=== PATIENT | female | born 1940 | race Caucasian/White ===

== ENCOUNTER → 2016-06-11 | Outpatient (CLI) | payer OTHER | LOC: BHFA 13:00 | PROVIDERS: ATTEND Internal Medicine Cardiovascular Disease | DX: I50.32 Chronic diastolic (congestive) heart failure (principal); R06.02 Shortness of breath; I48.91 Unspecified atrial fibrillation; I63.9 Cerebral infarction, unspecified; R53.83 Other fatigue ==

== ENCOUNTER 2016-10-18 01:14 | Emergency (ER) | payer OTHER ==
[2016-10-18 01:24] VITALS: RESP 18
[2016-10-18] MEDS ORDERED: ONDANSETRON 4 MG/2 ML VIAL IVP ONE (01:27)
[2016-10-18] MEDS ORDERED: NS 1,000 ML IV ONE (01:27)
--- NOTE | 2016-10-18 01:27 | EDPHY ---
H & P Stated Complaint: VOMITING UP POSS. BLOOD TODAY, TAKES COUMADIN HPI/ROS: HPI CHIEF COMPLAINT: Nausea, vomiting, lower abdominal pain, hematemesis HISTORY OF PRESENT ILLNESS: This patient very pleasant 76-year-old female, significant past medical history for AFib on Coumadin, MCA stroke with left- sided residual deficit, who presents emergency room with nausea, abdominal pain , vomiting and what they thought was dark clotted blood in her vomit. Patient tell me that over the past month there has been 3 episodes of vomiting. There were 2 episodes that were associated with right after eating a meal bolus. They did not identify any blood on nose 2 episodes she states she vomited 1 time on the and 1 time on the . She was seen by her primary care doctor. They scheduled her an ultrasound of her right upper quadrant. Tonight she had multiple episodes of vomiting they noticed on 1 of the episodes that there was dark clotted blood present they describe it is very dark black blueberries. She denies chest pain or shortness of breath. She was seen by her primary care doctor thought that it may be esophagitis or esophageal spasms. She denies dark black tarry stools. She is on Coumadin. Past Medical History: AFib, on Coumadin, MCA infarct left-sided residual deficit, generalized weakness, UTI Past Surgical History: No recent surgical history Social History: Denies daily use of drugs alcohol tobacco products Family History: Noncontributory ROS REVIEW OF SYSTEMS: A comprehensive 10 point review of systems is otherwise negative aside from elements mentioned in the history of present illness. Exam Constitutional appears well nontoxic, triage nursing summary reviewed, vital signs reviewed, awake/alert. Eyes normal conjunctivae and sclera, EOMI, PERRLA. HENT normal inspection, atraumatic, moist mucus membranes, no epistaxis, neck supple/ no meningismus, no raccoon eyes. Respiratory clear to auscultation bilaterally, normal breath sounds, no respiratory distress, no wheezing. Cardiovascular rate normal, regular rhythm, no murmur, no edema, distal pulses normal. Gastrointestinal soft, mild tender palpation lower abdomen, no rebound, no guarding, normal bowel sounds, no distension, no pulsatile mass. Genitourinary no CVA tenderness. Musculoskeletal no midline vertebral tenderness, full range of motion, no calf swelling, no tenderness of extremities, no meningismus, good pulses, neurovascularly intact. Skin pink, warm, & dry, no rash, skin atraumatic. Neurologic awake, alert and oriented x 3, AAOx3, moves all 4 extremities equally, motor intact, sensory intact, CN II-XII intact, normal cerebellar, normal vision, normal speech. Psychiatric normal mood/affect. Heme/Lymph/Immune no lymphadenopathy. Differential Diagnosis: Includes but is not limited to in a particular order upper GI bleed on Coumadin, esophagitis, peptic ulcer disease, gastritis, esophageal varices, colitis, diverticulitis, UTI Medical Decision Making: Plan for this patient IV establishment, type and screen, check Coumadin level, abdominal blood work, CT abdomen pelvis with IV contrast due to lower abdominal pain and vomiting. Check urinalysis. Re-evaluation: EKG interpretation by me on record in [employer] system. Impression time of EKG 1:51 a.m. AFib rate of 90. Q-waves present V1 V2 V3 similar previous EKG. There is T-wave flattening in V4 V5 V6 which is new. CT scan of the abdomen pelvis with IV contrast The results of the study are shows no acute inflammatory process seen there is a new 1 mm left UPJ stone, but otherwise no acute inflammatory process seen on CT scan.. The study was read by Dr. Garces I viewed the images myself on the PACS system. 0342AM: Re-examination at this time patient is resting comfortably or abdomen is soft. She has no complaints. I did perform a rectal exam: Starr RN at bedside. Brown stool no black stool. Guaiac card for Hemoccult blood is sent. 0439: Patient has been resting comfortably abdomen is soft nontender. Blood work has been reviewed is reassuring, Coumadin is appropriate level. She has not had any vomiting here. Rectal exam shows brown stool no blood. I did give the patient option to be admitted for observation however her after great discussion with myself feel that she can go home unlikely she is having acute GI bleed given H&H are stable, no vomiting blood here, brown stool guaiac negative. She does understand return precautions return emergency room she develops worsening abdominal pain, fever, vomiting of blood black tarry stools or bright red blood per rectum return immediately. I do recommend that she follows up with Gastroenterology on outpatient basis. Will place her on Zantac for 2 weeks. Zofran as needed for nausea she understands return emergency room there is any worsening symptoms questions or concerns. They are comfortable this plan. Additionally the and patient think that maybe the dark black spots that may have been blood in her vomit this evening my have been retain blueberries from dry cereal 24 hours ago. Source: Patient - Personal History Current Tetanus/Diphtheria Vaccine: Yes Current Tetanus Diphtheria and Acellular Pertussis (TDAP): Yes - Medical/Surgical History Hx Asthma: No Hx Chronic Respiratory Disease: No Hx Diabetes: No Hx Cardiac Disease: Yes Hx Renal Disease: No Hx Cirrhosis: No Hx Alcoholism: No Hx HIV/AIDS: No Hx Splenectomy or Spleen Trauma: No Other PMH: Afib, CVA - Left side deficits normally 2000, TIA 2014, hypothyroid, high lipids, broken left arm. - Social History Smoking Status: Never smoked Constitutional: Initial Vital Signs Temperature (C) 36.7 C 10/18/16 01:21 Heart Rate 93 10/18/16 01:21 Respiratory Rate 18 10/18/16 01:21 Blood Pressure 128/74 H 10/18/16 01:21 O2 Sat (%) 100 10/18/16 01:21 O2 Delivery Mode Room Air Allergies/Adverse Reactions: baclofen Allergy (Verified 10/18/16 01:24) Home Medications: Medication Instructions Recorded Atorvastatin Calcium [Lipitor 10 10 mg PO Q2D@1800 08/18/15 mg (*)] Cholecalciferol Vit D3 [Vitamin D3 6,000 units PO HS 08/18/15 (*)] Herbals/Supplements -Info Only 1 ea PO DAILY 08/18/15 Metoprolol Succinate 50 mg PO DAILY 08/18/15 Multivitamins [Multivitamin (*)] 1 each PO DAILY 08/18/15 [place]-3 Fatty Acids [Fish Oil 1000 1,000 mg PO DAILY@1800 08/18/15 mg (*)] Levothyroxine [Synthroid 100 mcg 100 mcg PO DAILY@17 04/11/16 (*)] Losartan Potassium [Cozaar 50 mg 100 mg PO DAILY 04/11/16 (*)] Omeprazole [Prilosec 20 mg] 40 mg PO DAILY 04/11/16 Vitamin K + Mk-7 90mcg 1 each PO DAILY@16 04/11/16 Warfarin Sodium [Coumadin 2MG (*)] 2 mg PO SUTUWEFRSA 04/11/16 Warfarin Sodium [Coumadin 3MG (*)] 3 mg PO MOTH 04/11/16 Acetaminophen [Tylenol 325mg (*)] 650 mg PO Q4HRS PRN #0 tab 04/14/16 Ondansetron HCl [Zofran] 4 mg PO Q4-6PRN PRN #10 tablet 10/18/16 Ranitidine HCl [Zantac] 150 mg PO DAILY #30 tablet 10/18/16 Medical Decision Making - Data Points Laboratory Results: Laboratory Results 10/18/16 02:00 10/18/16 02:00 10/18/16 10/18/16 10/18/16 03:45 02:00 02:00 WBC RBC Hgb Hct MCV MCH MCHC RDW Plt Count MPV Neut % (Auto) Lymph % (Auto) [place] % (Auto) Eos % (Auto) Baso % (Auto) Nucleat RBC Rel Count Absolute Neuts (auto) Absolute Lymphs (auto) Absolute Monos (auto) Absolute Eos (auto) Absolute Basos (auto) Absolute Nucleated RBC Immature Gran % Immature Gran # PT INR APTT VBG Lactic Acid Sodium 141 mEq/L mEq/L (134-144) Potassium 4.1 mEq/L mEq/L (3.5-5.2) Chloride 106 mEq/L mEq/L (97-110) Carbon Dioxide 26 mEq/l mEq/l (22-31) Anion Gap 9 mEq/L mEq/L (8-16) BUN 20 mg/dL mg/dL (7-23) Creatinine 0.9 mg/dL mg/dL (0.6-1.0) Estimated GFR > 60 Glucose 112 mg/dL H mg/dL (70-100) Calcium 9.7 mg/dL mg/dL (8.5-10.4) Total Bilirubin 0.7 mg/dL mg/dL (0.1-1.4) Conjugated Bilirubin 0.4 mg/dL mg/dL (0.0-0.5) Unconjugated Bilirubin 0.3 mg/dL mg/dL (0.0-1.1) AST 33 IU/L IU/L (14-46) ALT 49 IU/L IU/L (9-52) Alkaline Phosphatase 80 IU/L IU/L (38-126) Troponin I < 0.012 ng/mL ng/mL (0-0.034) Total Protein 7.1 g/dL g/dL (6.3-8.2) Albumin 4.0 g/dL g/dL (3.5-5.0) Lipase 213.0 IU/L IU/L (23-300) Stool Occult Bld Scrn NEGATIVE (NEGATIVE) Patient ABO/Rh O POSITIVE Antibody Screen NEGATIVE 10/18/16 10/18/16 10/18/16 02:00 02:00 02:00 WBC 8.17 10^3/uL 10^3/uL (3.80-9.50) RBC 4.54 10^6/uL 10^6/uL (4.18-5.33) Hgb 14.3 g/dL g/dL (12.6-16.3) Hct 42.6 % % (38.0-47.0) MCV 93.8 fL fL (81.5-99.8) MCH 31.5 pg pg (27.9-34.1) MCHC 33.6 g/dL g/dL (32.4-36.7) RDW 14.3 % % (11.5-15.2) Plt Count 196 10^3/uL 10^3/uL (150-400) MPV 11.1 fL fL (8.7-11.7) Neut % (Auto) 69.5 % % (39.3-74.2) Lymph % (Auto) 16.9 % % (15.0-45.0) [place] % (Auto) 11.5 % % (4.5-13.0) Eos % (Auto) 0.7 % % (0.6-7.6) Baso % (Auto) 0.5 % % (0.3-1.7) Nucleat RBC Rel Count 0.0 % % (0.0-0.2) Absolute Neuts (auto) 5.68 10^3/uL 10^3/uL (1.70-6.50) Absolute Lymphs (auto) 1.38 10^3/uL 10^3/uL (1.00-3.00) Absolute Monos (auto) 0.94 10^3/uL H 10^3/uL (0.30-0.80) Absolute Eos (auto) 0.06 10^3/uL 10^3/uL (0.03-0.40) Absolute Basos (auto) 0.04 10^3/uL 10^3/uL (0.02-0.10) Absolute Nucleated RBC 0.00 10^3/uL 10^3/uL (0-0.01) Immature Gran % 0.9 % % (0.0-1.1) Immature Gran # 0.07 10^3/uL 10^3/uL (0.00-0.10) PT 31.2 SEC H SEC (12.0-15.0) INR 2.96 H (0.83-1.16) APTT 38.8 SEC H SEC (23.0-38.0) VBG Lactic Acid 1.1 mmol/L mmol/L (0.7-2.1) Sodium Potassium Chloride Carbon Dioxide Anion Gap BUN Creatinine Estimated GFR Glucose Calcium Total Bilirubin Conjugated Bilirubin Unconjugated Bilirubin AST ALT Alkaline Phosphatase Troponin I Total Protein Albumin Lipase Stool Occult Bld Scrn Patient ABO/Rh Antibody Screen Medications Given: Discontinued Medications Sodium Chloride (Ns) 1,000 mls @ 0 mls/hr IV ONCE ONE PRN Reason: Wide Open Stop: 10/18/16 01:28 Last Admin: 10/18/16 02:00 Dose: 1,000 mls Ondansetron HCl (Zofran) 4 mg IVP EDNOW ONE Stop: 10/18/16 01:28 Last Admin: 10/18/16 03:57 Dose: Not Given Departure - Departure Disposition: Home, Routine, Self-Care Clinical Impression: Vomiting Qualifiers: Vomiting type: unspecified Vomiting Intractability: non-intractable Nausea presence: with nausea Qualified Code(s): R11.2 - Nausea with vomiting, unspecified Condition: Good Instructions: Acute Nausea and Vomiting (ED) Additional Instructions: 1. Return immediately to the emergency room if he develops any further vomiting or blood in her vomit. 2. I do recommend he take Zantac for 2 weeks. 3. Return emergency room if you have further questions or concerns. 4. Do recommend he also follow up with Gastroenterology and get her ultrasound this Saturday. Referrals: Aamir Bush MD [Primary Care Provider] - As per Instructions Gary Bhatti MD [Medical Doctor] - As per Instructions Prescriptions: Ondansetron HCl [Zofran] 4 mg PO Q4-6PRN PRN #10 tablet PRN Reason: Nausea/Vomiting, Use 1st Ranitidine HCl [Zantac] 150 mg PO DAILY #30 tablet
--- NOTE | 2016-10-18 01:53 | CPEKG ---
Heart Rate: 90 RR Interval: 667 QRSD Interval: 76 QT Interval: 380 QTC Interval: 465 QRS [place]: -19 T Wave [place]: -11 EKG Severity - ABNORMAL ECG - EKG Impression: ATRIAL FIBRILLATION, V-RATE 67-111 EKG Impression: BORDERLINE LEFT AXIS DEVIATION EKG Impression: BORDERLINE T ABNORMALITIES, INFERIOR LEADS Electronically Signed By: Janes Poole 18-Oct-2016 07:31:02
[2016-10-18] MEDS ORDERED: IOPAMIDOL (ISOVUE-300) 100 ML BTL ONE (02:02)
[2016-10-18 02:15] LABS: % IMMATURE GRANULYOCYTES 0.9 % (0.0-1.1); ABSOLUTE IMMATURE GRANULOCYTES 0.07 10^3/uL (0.00-0.10); ADD DIFF? NO; ADD MORPH? NO; ATYPICAL LYMPHOCYTE FLAG 0 (0-99); FRAGMENT RBC FLAG 0 (0-99); HEMATOCRIT 42.6 % (38.0-47.0); HEMOGLOBIN 14.3 g/dL (12.6-16.3); LEFT SHIFT FLG 0 (0-99); LIPEMIA HEMOLYSIS FLAG 80 (0-99); MEAN CELL HEMOGLOBIN 31.5 pg (27.9-34.1); MEAN CELL HEMOGLOBIN CONCENTR. 33.6 g/dL (32.4-36.7); MEAN CELL VOLUME 93.8 fL (81.5-99.8); MEAN PLATELET VOLUME 11.1 fL (8.7-11.7); PLATELET CLUMPS FLAG 0 (0-99); PLATELET COUNT 196 10^3/uL (150-400); RED BLOOD CELL COUNT 4.54 10^6/uL (4.18-5.33); RED CELL DISTRIBUTION WIDTH 14.3 % (11.5-15.2)
[2016-10-18 02:16] LABS: ADD SCAN? NO
[2016-10-18 02:27] LABS: APTT 38.8 SEC (23.0-38.0); INR 2.96 (0.83-1.16); PROTIME(PATIENT) 31.2 SEC (12.0-15.0)
[2016-10-18 02:42] LABS: ALANINE AMINOTRANSFERASE 49 IU/L (9-52); ALKALINE PHOSPHATASE 80 IU/L (38-126); ANION GAP 9 mEq/L (8-16); ASPARTATE AMINOTRANSFERASE 33 IU/L (14-46); BILIRUBIN,TOTAL 0.7 mg/dL (0.1-1.4); BILIRUBIN-CONJUGATED 0.4 mg/dL (0.0-0.5); BILIRUBIN-UNCONJUGATED 0.3 mg/dL (0.0-1.1); CALCIUM 9.7 mg/dL (8.5-10.4); CARBON DIOXIDE 26 mEq/l (22-31); CHLORIDE 106 mEq/L (97-110); CREATININE 0.9 mg/dL (0.6-1.0); GLOMERULAR FILTRATION RATE > 60; GLUCOSE 112 mg/dL (70-100); POTASSIUM 4.1 mEq/L (3.5-5.2); SODIUM 141 mEq/L (134-144); TOTAL PROTEIN 7.1 g/dL (6.3-8.2)
[2016-10-18 02:53] LABS: TROPONIN I < 0.012 ng/mL (0-0.034)
[2016-10-18 04:24] VITALS: BP 130/67; PULSE 85; TEMP 97.9
[2016-10-18 04:37] VITALS: O2SAT 90
== END 2016-10-18 04:53 | disposition home or self-care (01) ==
DX: R11.2 Nausea with vomiting, unspecified (principal); Z79.01 Long term (current) use of anticoagulants; Z86.73 Personal history of transient ischemic attack (TIA), and cerebral infarction without residual deficits
CPT/HCPCS: 74177; 93005; 96360; 99285; Q9967

== ENCOUNTER → 2016-10-19 | Outpatient (CLI) | payer OTHER | LOC: CIMAGING 10:09 | PROVIDERS: ATTEND Physician Assistant | DX: R10.11 Right upper quadrant pain (principal); R11.11 Vomiting without nausea; R74.8 Abnormal levels of other serum enzymes; N28.1 Cyst of kidney, acquired | CPT/HCPCS: 76700-PO ==

== ENCOUNTER → 2016-12-25 | Outpatient (CLI) | payer OTHER | LOC: FIMAGING 11:15 | PROVIDERS: ATTEND Internal Medicine | DX: Z12.31 Encounter for screening mammogram for malignant neoplasm of breast (principal) | CPT/HCPCS: G0202 ==

== ENCOUNTER → 2017-02-07 | Outpatient (CLI) | payer OTHER | LOC: FIMAGING 09:59 | PROVIDERS: ATTEND Internal Medicine | DX: Z13.820 Encounter for screening for osteoporosis (principal); M81.0 Age-related osteoporosis without current pathological fracture; Z78.0 Asymptomatic menopausal state; Z87.81 Personal history of (healed) traumatic fracture ==

== ENCOUNTER 2018-08-26 14:39 | Inpatient (IN) | payer OTHER ==
[2018-08-26] MEDS ORDERED: ACETAMINOPHEN 325 MG TAB PO PRN (15:36)
[2018-08-26] MEDS ORDERED: ONDANSETRON DISINTEGRATING 4 MG TAB PO PRN (15:36)
[2018-08-26] MEDS ORDERED: ONDANSETRON 4 MG/2 ML VIAL IVP PRN (15:36)
--- NOTE | 2018-08-26 17:06 | GHP ---
[f rep st] HISTORY AND PHYSICAL DATE OF ADMISSION: 08/26/2018 ADMITTING DIAGNOSES: Nausea and weakness. PAST MEDICAL HISTORY: Positive for osteoporosis, congestive heart failure, stroke in 2000 with resid ual left-sided weakness, chronic atrial fibrillation, on anticoagulation, hypothyroidism. PAST SURGICAL HISTORY: Includes tonsillectomy in 1954, hysterectomy in 1991, and cataract surgeries in 2007 and 2016. FAMILY HISTORY: Daughter is alive at 46 years old. Father is ; positive for malignant melan yamil. Mother ; liver and uterine cancer. Paternal grandfather from cancer. Paterna l grandmother from cancer. Maternal grandfather from heart disease. Maternal gran dmother from cancer. ALLERGIES: No known drug allergies. HISTORY OF PRESENTING ILLNESS: The patient is a 78-year-old female who was admitted as a direct admi ssion from the office. She has a past medical history, which is complicated by a stroke in 2000 and atrial fibrillation for which she takes chronic anticoagulation. She was admitted to [facility] on August 19, following a fall over the weekend related to increased fatigue and weakness. She was found to be positive for a urinary tract infection and was started on Keflex. She also was positive for flu and was given Tamiflu while in the hospital. The patient was discharged home on Aug, with her , who is her primary press machine operator. She was seen in the office yesterday for a f ollowup from discharge and reported that she was making some progress in her recovery, though was sti ll weak and still had residual respiratory symptoms. She then followed up again today in the office complaining of increased nausea and weakness overnight, such that she was unable to even eat or drink since she was in the office yesterday due to the nausea. She also reported that she has been having loose stools, though after taking a dose of Imodium this morning, she has not had any subsequent epi sodes of diarrhea. She denies any fevers or chills. Also notably, the patient and her repor t that while at the hospital last week, she was requiring nocturnal oxygen as she was desaturating to the mid 80s on room air. Last night, she did a SNAP sleep study at home, which did reveal significa nt hypoxia overnight. The patient will be admitted for rehydration and management of her nausea as w e work up the cause of her ongoing weakness and current symptomatology. REVIEW OF SYSTEMS: GENERAL: Denies fever, chills. Endorses fatigue and decreased appetite. ENT: Denies ear pain, sore throat, nasal congestion, or sinus pressure and pain. RESPIRATORY: Denies heather rtness of breath, wheezing. Does endorse a generally nonproductive cough without sputum production. CARDIOVASCULAR: Denies chest pain, palpitations, dizziness, lightheadedness. GI: Denies abdominal pain and constipation. Does endorse persistent nausea and intermittent episodes of diarrhea. Denie s any blood in her stool. MUSCULOSKELETAL: Denies joint stiffness, joint pain, or swollen joints, b ut does endorse low back pain related to fall from last weekend. SKIN: Denies itching, rash, hives. NEUROLOGIC: Has baseline left-sided weakness. Denies any acute weakness or change in strength or s ensation. PSYCHIATRIC: Denies any anxiety or mood changes. PHYSICAL EXAMINATION: GENERAL: Alert, appropriate, in no acute distress. HEAD: Normocephalic, atr aumatic. EYES: EOMI, PEERL. SKIN: Warm and dry. HEART: Irregularly irregular, rate-controlled. No murmurs, rubs, or gallops. LUNGS: Bilateral lower lobes with fine crackling. No wheezing. EXT REMITIES: No peripheral edema noted. NEUROLOGIC: Alert, oriented, cooperative with exam. ASSESSMENT AND PLAN: 1. Nausea. Patient has been experiencing persistent nausea for the past couple of days. She has be en unable to eat or drink anything since yesterday due to the nausea. She has not had any episodes o f emesis. We will start some rehydration with normal saline through the evening and give her as-need ed Zofran while we work this up. Unclear etiology of the nausea at this time. 2. Respiratory infection. She was recently diagnosed with the flu and was given a course of Tamiflu , so I suspect that this is lingering from this recent upper respiratory infection, though I would li ke to get a chest x-ray to rule out a developing pneumonia, given her current symptomatology. 3. Fatigue, likely related to any lingering infection. She was previously being treated for urinary tract infection as well. We will plan to start physical therapy and occupational therapy to help wi th strength and reconditioning as we continue to investigate any ongoing cause of her fatigue and wea kness. 4. Urinary tract infection. We will continue the Keflex that she was started on for urinary tract i nfection. 5. Disposition. Will admit for observation pending workup. /[id number]/MODL
[2018-08-26 17:26] LABS: PLATELET COUNT 326 10^3/uL (150-400)
[2018-08-26] MEDS: NS 1,000 ML IV SCH (18:17)
[2018-08-26] MEDS: WARFARIN SODIUM 3 MG TAB PO SCH (18:25)
[2018-08-26] MEDS ORDERED: MELATONIN 3 MG TAB PO PRN (23:53)
[2018-08-27 05:20] LABS: INR 3.44 (0.83-1.16); PROTIME(PATIENT) 32.9 SEC (12.0-15.0)
[2018-08-27] MEDS: NS 1,000 ML IV SCH ×2 (07:26)
[2018-08-27] MEDS ORDERED: FUROSEMIDE 20 MG/2 ML VIAL IVP ONE ×2 (09:01→14:00)
[2018-08-27] MEDS ORDERED: PROMETHAZINE HCL 25 MG/ML INJ IVP PRN (09:22)
[2018-08-27] MEDS ORDERED: Herbals/Supplements -Info Only PO SCH (09:30)
[2018-08-27] MEDS: CHOLECALCIFEROL VIT D3 1,000 UNITS TAB PO SCH (10:16)
[2018-08-27] MEDS: METOPROLOL SUCCINATE XR 50 MG TAB PO SCH (10:17)
[2018-08-27] MEDS: LOSARTAN POTASSIUM 50 MG TAB PO SCH (10:17)
[2018-08-27] MEDS: CEPHALEXIN 500 MG CAP PO SCH ×2 (10:17→20:07)
--- NOTE | 2018-08-27 10:45 | SOAPPROG ---
SOAP Progress Note Assessment/Plan: Assessment: 78 yo female admitted for nausea and weakness. Plan: Fatigue - BNP elevated which is likely contributing to weakness and possibly nausea if hepatic congestion as well. Will order echo today for further eval. Lasix 20mg today for diuresis. Nausea- as discussed above. PRN zofran and compazine for nausea. Weakness - PT/OT, will also repeat urine to make sure we are not missing a lingering UTI Nocturnal hypoxia- pt likely needs 2LO2 to maintain O2 sats above 90% at night. RN To titrate O2 based on requirements. Diarrhea- r/o cdiff Dispo- will stay this evening so will switch to inpt 08/27/18 10:00 08/27/18 10:46 Subjective: Christianne is resting in bed this morning. She tried to eat some omelet but feels nauseous. Still has a mild cough. One loose BM this morning. Objective: Vital Signs Temp Pulse Resp BP Pulse Ox 36.6 C 107 H 16 135/82 H 91 L 08/27/18 07:14 08/27/18 07:14 08/27/18 07:14 08/27/18 07:14 08/27/18 07:14 Laboratory Results 08/26/18 17:10 08/26/18 17:10 08/26/18 08/27/18 08/28/18 05:59 05:59 05:59 Intake Total 2340 Balance 2340 PT 32.9 SEC (12.0-15.0) H 08/27/18 04:41 INR 3.44 (0.83-1.16) H 08/27/18 04:41 Gen- alert, oriented, vitals stable Head- normocephalic, atraumatic CV- irregularly irregular rate and rhythm, rate controlled Resp- bibasilar crackling Abd- SNT nondistended, + BS Skin- warm and dry ICD10 Worksheet Patient Problems: Problems Problem Status Onset Dehydration Acute Nausea Acute Nausea vomiting and diarrhea Acute Weakness generalized Acute
[2018-08-27] MEDS: IPRATROPIUM/ALBUTEROL 3 ML DEYVIAL IH SCH ×3 (11:22→21:57)
--- NOTE | 2018-08-27 13:23 | ECHO ---
[email or web address] [address] Main: [phone] Echocardiography Examination Transthoracic Name: REKHA ANGELES MR#: [id number] Study Date: 08/27/2018 Study Time: 10:41 AM Date of : 1940 Age: 78 year(s) Height: 167.6 cm (66 in.) Weight: 68.04 kg (150 lb.) BSA: 1.77 m2 Gender: Female Examination: Echo Contrast: Image Quality: Adequate Rhythm: Heart Rate: BP: 135 mmHg/82 mmHg Indication: elevated BNP Procedure Staff Referring Physician: Biscuit Packer: Ketty Merritt [facility] Reading Physician: Martin Card MD Requesting Provider: Ordering Physician: Shyanne Harvey Indication: elevated BNP Measurements Chambers AV/MV Label Value Normal Value Label Value Normal Value LVOT Vmax 0.58 m/s (0.7m/s - 1.1m/s) AV PGmax 4 mmHg LVOTd 1.7 cm (1.8cm - 2cm) AV PGmean 3 mmHg LVOT VTI 11.4 cm (18cm - 22cm) AV Vmax 0.93 m/s LVDd, MM 3.7 cm (3.9cm - 5.3cm) LIZ (Vmax) 1.4 cm2 LVDs, MM 2.7 cm (2cm - 3.8cm) LIZ (VTI) 14.4 cm2 IVSd, MM 1.1 cm (0.6cm - 0.9cm) MV E Vmax 0.9 m/s LVPWd, MM 1.1 cm (0.6cm - 0.9cm) MV PHT 58 s LVEF, BP 57 % (55% - 70%) MVA PHT 0 cm2 RVDd, 2D 2.7 cm (1.9cm - 3.8cm) TV/PV LA Volume, BP 134 ml (22ml - 52ml) Label Value Normal Value LAESV index, BP 75.7 ml/m2 RA Pressure 5 mmHg RA Area 21.7 cm2 RVSP 46 mmHg Additional Vessels TR Pmax 41 mmHg Label Value Normal Value TV Vmax 3.2 m/s (0.3m/s - 0.7m/s) AoAsc 3 cm PV PGmax 1 mmHg AoRoot, 2D 2.8 cm (1.4cm - 2.6cm) IVC 1.7 cm (1.2cm - 2.3cm) Patient: REKHA ANGELES Study Date: 08/27/2018 Page 1 of 3 10:41 AM Conclusions Left Ventricle: EF range is estimated at 55 % - 60 %. Mitral Valve: Severe mitral regurgitation. There is mitral valve prolapse. Aortic Valve: Mild aortic regurgitation is present. Tricuspid Valve: Moderate to severe tricuspid regurgitation. Right Ventricular systolic pressure is measured at 46 mmHg. Findings Left Ventricle: Left ventricle is normal in size. Normal global systolic left ventricular function. The ejection fraction, measured by Simpsons method, is 57 %. EF range is estimated at 55 % - 60 %. Left ventricle wall thickness is normal. There are no regional wall motion abnormalities. Right Ventricle: Normal size right ventricle. Right ventricular systolic function is normal. Left Atrium: The left atrium is severely dilated. Right Atrium: The right atrium is moderately dilated. Mitral Valve: Severe mitral regurgitation. No mitral valve stenosis. There is mitral valve prolapse. Aortic Valve: Aortic leaflets are structurally normal. Mild aortic regurgitation is present. There is no aortic stenosis. There is aortic sclerosis present. Tricuspid Valve: Tricuspid valve leaflets are structurally normal. Moderate to severe tricuspid regurgitation. No tricuspid valve stenosis. Right Ventricular systolic pressure is measured at 46 mmHg. Pulmonary artery pressure is mildly to moderately increased. Pulmonic Valve: Pulmonic leaflets are structurally normal. Mild pulmonic valve regurgitation is present. Aorta: The aortic root size in 2D measures 2.8 cm. The ascending aorta measures 3.0 cm. Aorta Measurements AoRoot, 2D is 2.8 cm. IVC: The inferior vena cava is normal in size. Pericardium: No pericardial effusion. Exam Details Procedure Ordered: Echo Procedure Status: Routine study Image Quality: Adequate Facility Location: Cardiac Echo 1 Patient: REKHA ANGELES Study Date: 08/27/2018 Page 2 of 3 10:41 AM (No Signature Object) Patient: REKHA ANGELES Study Date: 08/27/2018 Page 3 of 3 10:41 AM [id number]
--- NOTE | 2018-08-27 15:02 | ASMTCMCOM ---
CM Note CM Note Notes: Reviewed chart, pt admitted to hospital directly from MD's office for nausea/weaknes. PT/OT to eval CM w/f. DC Plan: TBD Date Signed: 08/27/2018 03:01 PM Electronically Signed By:Sonali Moise RN
--- NOTE | 2018-08-27 15:22 | PDMN ---
Medical Necessity Medical necessity: Change to IP, as of 08/27/18, per CLERK GENERAL & [facility] MG-[facility] Cardiology; los >2 mn for ongoing management of suspected valvular heart disease w/fatigue, elevated BNP, nausea & diarrhea; requiring further workup/monitoring, Cardiology consult w/possible surgical intervention & therapies; comorbid advanced age, CHF, AFIB on AC, stroke w/residual weakness
[2018-08-27] MEDS ORDERED: WARFARIN SODIUM 2 MG TAB PO SCH (16:00)
[2018-08-27] MEDS: [UNRECOGNIZED DRUG - OTHER] PO SCH (16:45)
--- NOTE | 2018-08-27 17:16 | GCON ---
[f rep st] CONSULTATION CARDIOLOGY CONSULTATION SUPERVISING SPRAY II PAINTER: Rodríguez Izquierdo MD. INDICATION FOR CARDIOLOGY CONSULTATION: Heart failure with noted worsening mitral regurgitation. REQUESTING PROVIDER FOR CONSULTATION: Shyanne Harris NP. HISTORY OF PRESENT ILLNESS: The patient is a 78-year-old female who had priorly been seen by our practice by Dr. Baez. She has significant past history that includes permanent atrial fibrillation first discovered in 1998, centralized sleep apnea, history of CVA with left-sided deficit in 2000, hypertension, moderate MR, chronic diastolic heart failure, and hypothyroidism. The patient and informing the patient had been feeling sick and fatigued for approximately a week before the beginning of August. She was recently hospitalized at [facility] for fatigue and shortness of breath. She was found to have both urinary tract infection, which was treated with Keflex and influenza A which was treated with Tamiflu. She appeared to be recovering, she was discharged home. She was seen at Dr. Parmar's office on the as a hospital followup, reporting feeling a little bit better, but returned office visit on the , reporting increased shortness of breath, and ongoing fatigue. She was admitted directly to the hospital from their office. Upon arrival, a chest x-ray was done which noted showing no consolidation or opacity suggesting of pneumonia, peribronchial thickening which can be seen with reactive small airway disease, but no acute cardiopulmonary process. Laboratories were also drawn on admission, which noted a significantly elevated BNP of 5190. Due to this, echocardiogram was done, this morning, which noted LVEF of 55% to 60% with no wall motion abnormalities, RV function was noted to be normal. She was noted to have severely dilated LA, moderately dilated RA and noted to have severe MR. She was also noted to have moderate to severe TR with an RVSP of 46 mmHg. In comparison to previous echo done in 2016, her MR and TR had significantly worsen. She was given 2 doses of IV Lasix today, in which she has had significant output. She does inform me that she has been feeling better since being started on IV diuresis. She reports she has had no history of chest pressure or pain. She denies any palpitations, but she is known to be in permanent atrial fibrillation. She does report some mild orthopnea, denies any PND, edema, near-syncope, or syncopal events. Reporting no new symptoms suggesting recurrent TIA or CVA. PAST MEDICAL HISTORY: Includes: 1. Permanent atrial fibrillation, first diagnosed in 1998. 2. She does state that she was on warfarin for a small amount of time, when first diagnosed, but stopped it. Unfortunately she did have a CVA in 2000 which left left-sided arm deficit 3. hypertension 4. mitral regurgitation 5. chronic diastolic heart failure 6. osteoporosis 7. hypothyroidism 8. hyperlipidemia. PAST SURGICAL HISTORY: Includes tonsillectomy hysterectomy and cataract surgery. FAMILY HISTORY: Positive for cancer, and reporting maternal grandfather was from heart disease. SOCIAL HISTORY: She is . She has 1 daughter who is an Infectious Disease doctor for the [employer]. She denies of any history of smoking, denies any alcohol use. Denies any illicit drug use. She lives in [place]. ALLERGIES: Baclofen. HOME MEDICATIONS: Include warfarin 3 mg p.o. every Saturday and Saturday. Warfarin 2 mg p.o. every Saturday, Saturday, Saturday, and Saturday. Vitamin D 36,000 units p.o. daily. Vitamin K plus ML7 90 mcg p.o. daily. Metoprolol succinate 500 mg p.o. daily. Losartan 50 mg p.o. daily. Synthroid 100 mcg p.o. daily. REVIEW OF SYSTEMS: A 10-point review of systems done on patient all negative except as mentioned above. PHYSICAL EXAMINATION: GENERAL APPEARANCE: Thin, frail looking, elderly female. She is alert and oriented to person, place, time, and situation. Appears to be in no acute distress at the time of my examination. VITAL SIGNS: Current vital signs are blood pressure of 121/67, heart rate of 84 , atrial fibrillation on the monitor, respirations are 18, saturating 94% on 2 L nasal cannula, temperature 36.8 degrees Celsius. HEENT: Head is normocephalic. Lips and tongue are pink and moist with no signs of cyanosis. Conjunctivae pink. NECK: Trachea is midline, +2 carotid pulses bilateral, no auscultated bruits, jugular vein elevation of 5-6 cm above sternal notch at a 45 -degree angle. RESPIRATORY: Rales noted in bases bilateral, mild rhonchi upper lobes which clears with cough. No wheezing. No accessory muscle use, no intercostal muscle retraction noted. CARDIAC: Regular rate, irregular rhythm, S1, S2, 2/6 systolic murmur noted along the left sternal border. ABDOMEN: Soft , nontender, bowel sounds x4 quadrants. No organomegaly. No palpable masses. SKIN: [place], warm, dry, no cyanosis, no clubbing, no peripheral edema. VASCULAR : +2 carotids bilateral, +2 radials bilateral, +1 dorsal pedal and posterior tibial pulses bilateral. LABORATORY STUDIES: Laboratory studies drawn on admission showed WBC of 6.22, hemoglobin 12.2, hematocrit 35.3, platelet count 326. Sodium 135, potassium 4.0 , chloride 102, CO2 21, BUN 12, creatinine 0.6, glucose 73, calcium 8.2, total bilirubin 1.0, AST 44, ALT 27, alkaline phosphate 41. ProBNP 5190. Total protein 6.0, albumin 3.2. Today patient had an INR that was 3.44. UA was negative. STUDIES: Chest x-ray as mentioned above. Echocardiogram as mentioned above. ASSESSMENT AND PLAN: 1. Acute respiratory failure: Patient was noted at her primary care physician' s office to have SpO2 of 80%, she is currently on oxygen therapy, she has also been started on nebulizers, which has improved her saturation. Respiratory failure is probably multifactorial that includes recent respiratory infection from influenza and worsening of her diastolic heart failure. 2. Diastolic heart failure, acute on chronic: patient with known history of diastolic heart failure in the past with moderate mitral regurgitation, noticed significantly worst mitral regurgitation now. She does have elevated jugular venous distention with no significant peripheral vascular disease. She does have rales in the bases, she has made mild improvement with IV diuretics of Lasix. Echocardiogram noted normal LV systolic function, with no wall motion abnormalities. Normal EF. Severe MR. At this time, I would like to continue her on intravenous Lasix at 20 mg IV twice daily. Will order for her to get a potassium and magnesium level this afternoon for evaluation due to recent, and we will continue monitoring her electrolyte and renal function closely during her diuresis. Monitor her input and output, and daily weights. 3. Severe mitral regurgitation: Today's echocardiogram showing worsening mitral regurgitation, in comparison to previous echocardiogram in 2016. Potentially her diastolic heart failure and fluid overload could also cause her MR to be worsened, but reviewing echocardiograms with Dr. Izquierdo, due to her significantly dilated left atrium, her mitral regurgitation could also be underestimated. Will continue to diurese her and get her closer to euvolemic state. Once there, she will undergo transesophageal echocardiogram, for further evaluation of her valvular disease. We may also consider right and left heart catheterization if necessary. 4. Permanent atrial fibrillation: Patient noted to be in permanent atrial fibrillation, she is currently rate controlled on current dose of metoprolol succinate, will continue her on home dosage. She is supratherapeutic on warfarin, this is being adjusted by pharmacy, if we decide to do a heart catheterization during this hospitalization, we will maybe potentially discontinue warfarin and place her on Lovenox therapy due to her significant CHADS VASc score (5). 5. Hypertension: Her blood pressure appears to be well controlled on current medication regimen, due to diuresis, if we do notice significant lower blood pressures, if need be we will discontinue her losartan to allow for us to further diurese. 6. Hypothyroidism: She has been resumed on home Synthroid dosage. 7. History of cerebrovascular accident: She has left-sided paralysis. She reports no worsening in symptoms. Thank you for this consultation. We will be glad to follow along with you. /[id number]/MODL MTDD
[2018-08-27] MEDS: LEVOTHYROXINE 100 MCG TAB PO SCH (18:09)
[2018-08-27] MEDS ORDERED: MAGNESIUM SULF 2 GM/WATER 50 ML IV ONE (19:30)
[2018-08-27] MEDS ORDERED: POTASSIUM CL 20 MEQ TAB PO ONE (19:30)
[2018-08-28 04:49] LABS: INR 3.36 (0.83-1.16); PROTIME(PATIENT) 32.3 SEC (12.0-15.0)
[2018-08-28] MEDS: IPRATROPIUM/ALBUTEROL 3 ML DEYVIAL IH SCH ×4 (04:50→22:32)
[2018-08-28] MEDS: FUROSEMIDE 20 MG/2 ML VIAL IVP SCH ×2 (09:24→15:14)
[2018-08-28] MEDS: POTASSIUM CL 20 MEQ TAB PO SCH ×2 (09:29→11:07)
[2018-08-28] MEDS: METOPROLOL SUCCINATE XR 50 MG TAB PO SCH (09:30)
[2018-08-28] MEDS: CHOLECALCIFEROL VIT D3 1,000 UNITS TAB PO SCH (09:30)
[2018-08-28] MEDS: LOSARTAN POTASSIUM 50 MG TAB PO SCH (09:30)
--- NOTE | 2018-08-28 12:31 | SOAPPROG ---
SOAP Progress Note Assessment/Plan: Assessment: 78 yo female admitted for sob after recent URI w/ nausea and recent diarrhea, found to have CHF w/ diastolic hf and severe MR, mod-severe TR, w/ h/o long standing a fib and h/o CVA w/ left sided residual weakness and contraction. -SOB - multifactorial w/ recent URI, fluid overload. Getting better, on oxygen, diuresing, feeling like less trouble now w/ breathing significantly compared to yesterda. Cont w/ diuresis, o2. -diastolic HF w/ severe MR and mod-severe TR - cardiology seeing pt, appreciate input, on lasix 20 po bid, responding well to this, mag/k ok. Will likely need NORBERTO and may be f/u with R and L heart cath. -a fib -chronic, cont warfarin but holding now to let it drift down w/ planned procedures above and INR was too high on admissions. -HTN - cont on bb, losartan, watch bp w/ diuresis, may dial down losartan -dvt proph - coumadin Plan: 08/28/18 12:26 Subjective: Doing better, no further nausea, has had no diarrhea/stool, breathing more comfortable Objective: Vital Signs Temp Pulse Resp BP Pulse Ox 36.4 C 97 20 117/64 95 08/28/18 11:43 08/28/18 11:43 08/28/18 11:43 08/28/18 11:43 08/28/18 11:43 Laboratory Results 08/26/18 17:10 08/28/18 03:38 08/27/18 08/28/18 08/29/18 05:59 05:59 05:59 Intake Total 2340 855 Output Total 2250 Balance 2340 -1395 PT 32.3 SEC (12.0-15.0) H 08/28/18 03:38 INR 3.36 (0.83-1.16) H 08/28/18 03:38 Gen: pleasant, alert, spouse at bedside Heent: eomi, wearing nasal cannula Neck: soft/supple Chest: coarse bs throughout, more in bases CV: irreg irreg Ext: trace edema ble Neur: alert and oriented - Pending Discharge Pending Discharge Within 24 Hours: No ICD10 Worksheet Patient Problems: Problems Problem Status Onset Weakness generalized Acute Nausea vomiting and diarrhea Acute Dehydration Acute Nausea Acute
--- NOTE | 2018-08-28 12:48 | PDCARPN ---
Cardiology Progress Note Chief Complaint: Patient reports fatigue short of breath. Assessment/Plan: Assessment: 78-year-old female with significant history of permanent atrial fibrillation, previous CVA with left-sided deficit, hypertension, mitral regurgitation, chronic diastolic heart failure. Admitted on 08/26/2018 for shortness of breath, fatigue, nausea recent diarrhea. Patient with recent upper respiratory infection, influenza A positive, an UTI, with recent hospitalization at [facility]. Admission patient noted to have significantly elevated BNP of 5190. Echocardiogram done 08/27/2018 showing normal LV systolic function with EF 57%, no wall motion abnormalities, normal RV size and function, LA severely dilated, RA moderately dilated, severe MR, moderate to severe TR, RVSP of 46 mm Hg. 08/28/2018: Patient reporting improvement in shortness of breath. States fatigue symptoms have also improved. Denies of any chest pressure or pain. Continues are cardiac monitoring showing atrial fibrillation , rate controlled. O>I. Patient is down 1.2 kilos from yesterday. Laboratories noting potassium 3.6, BUN 11, creatinine 0.7, magnesium 2.1. INR supratherapeutic at 3.36. JVD improved, no further rales in bases, in comparison to yesterday. Continues cardiac monitoring showing atrial fibrillation, rate control, occasional PVC, no malignant arrhythmias or pauses . Plan: 1. Acute respiratory failure: Multifactorial with recent upper respiratory function and diastolic heart failure, patient reporting improvement in symptoms. Continue pulmonary toilet, continue treating heart failure. 2. Acute on chronic diastolic heart failure: Patient has diuresed well with IV Lasix. Will continue on current regime. BUN creatinine within normal limits. Potassium supplement ordered for today. Continue watching electrolyte renal function. Daily weights. I&Os. 3. Valvular heart disease: Echo noting severe MR, and moderate to severe TR, in comparison to previous echocardiogram in 2016, this has significantly worsened. Potentially heart failure to is contributing to the regurgitation. Continue treat with diuretics as mentioned above. Will plan on NORBERTO tomorrow for further evaluation. If necessary, patient may need right and left heart catheterization. 4. Permanent atrial fibrillation: Well rate controlled on current dose of metoprolol, no change. Supratherapeutic INR. Warfarin on hold. 5. Hypertension: BP appears to be within normal limits at this time. No change to current dose of metoprolol for losartan for the time being. 08/28/18 12:45 Subjective: Patient states that her fatigue and shortness of breath has improved. She denies of any chest pressure or pain. Denies of any lightheadedness, near- syncope or syncopal events. Reviewed/Discussed With: other (Dr Izquierdo) Objective: Vital Signs (8 Hrs) Temp Pulse Resp BP Pulse Ox 08/28/18 11:43 36.4 C 97 20 117/64 95 08/28/18 11:15 98 19 98 08/28/18 09:30 93 130/96 H 08/28/18 07:39 36.4 C 93 21 H 130/96 H 94 08/28/18 04:50 78 14 98 Intake/Output (24 Hrs) 08/27/18 08/28/18 08/29/18 05:59 05:59 05:59 Intake Total 2340 855 Output Total 2250 Balance 2340 -1395 Intake: Oral (ml) 540 780 IV Intake (ml) 75 IV Infused (ml) 1800 Ns 1,000 ml @ 150 mls/hr 1800 IV CONT JOSE EDUARDO Rx#: [id number] Output: Urine (ml) 2250 Bedside Commode 200 Catheter 0 Other: Weight 68.039 kg 66.8 kg Number of Voids Bedside Commode 1 1 Incontinence 1 2 Number of Stools Bedside Commode 1 Incontinence 1 Result Diagrams: 08/26/18 17:10 08/28/18 03:38 - Physical Exam Constitutional: no apparent distress, other (Elderly appearing female) Eyes: PERRL Ears, Nose, Mouth, Throat: moist mucous membranes Cardiovascular: systolic murmur (2/6 systolic murmur left sternal border), irregularly irregular (Regular rate irregular rhythm, atrial fibrillation noted on monitor.), jugular vein distention (4-5 cm above sternal notch at a 45 degree angle), pulses symmetric bilat, No carotid bruit Peripheral Pulses: 1+: dorsalis-pedis (R), dorsalis-pedis (L), 2+: carotid (R), carotid (L) Respiratory: other (Diminished in bases, but no further rales noted. Rhonchi that clears with cough. No accessary muscle use, no intercostal muscle retraction noted.) Gastrointestinal: normoactive bowel sounds Skin: warm, no edema Neurologic: AAOx3 Psychiatric: cooperative, interactive, following commands ICD10 Worksheet Patient Problems: Problems Problem Status Onset Weakness generalized Acute Nausea vomiting and diarrhea Acute Dehydration Acute Nausea Acute
[2018-08-28] MEDS: [UNRECOGNIZED DRUG - OTHER] PO SCH (15:14)
--- NOTE | 2018-08-28 16:24 | ASMTCMCOM ---
CM Note CM Note Notes: OT rec HHC. PT eval pending. Met with pt and at bedside. Pt reports she had just started skilled HC with [facility] prior to this hospitalization and wishes to resume services with [facility] (PT/OT/RN). Referral sent to [facility] in [place]. Pt also private pays for [facility] [employer] [facility] two times a week for functional fitness. [facility], placed in chart. D/c plan of care: Home with [facility] Date Signed: 08/28/2018 04:24 PM Electronically Signed By:JULIA Nova
[2018-08-28] MEDS: LEVOTHYROXINE 100 MCG TAB PO SCH (18:17)
--- NOTE | 2018-08-28 19:38 | CPEKG ---
Test Reason : OPEN Blood Pressure : / mmHG Vent. Rate : 102 BPM Atrial Rate : 137 BPM P-R Int : 208 ms QRS Dur : 091 ms QT Int : 398 ms P-R-T Axes : 180 001 -06 degrees QTc Int : 519 ms Atrial fibrillation Low voltage, precordial leads PVC versus aberrancy Confirmed by Bryan Washington ([id number]) on 08/28/2018 7:37:44 PM Referred By: Juice Harris Confirmed By:Bryan Washington
[2018-08-29 04:39] LABS: INR 2.54 (0.83-1.16); PROTIME(PATIENT) 26.1 SEC (12.0-15.0)
[2018-08-29] MEDS: IPRATROPIUM/ALBUTEROL 3 ML DEYVIAL IH SCH ×4 (05:01→22:39)
[2018-08-29] MEDS ORDERED: NS 1,000 ML IV ONE (06:00)
[2018-08-29] MEDS ORDERED: POTASSIUM CL 20 MEQ TAB PO ONE ×2 (07:31→09:45)
[2018-08-29] MEDS ORDERED: MAGNESIUM SULF 1 GM/DEXTROSE 100 ML IV ONE (07:32)
[2018-08-29] MEDS ORDERED: PROPOFOL 200 MG/20 ML VIAL ONE (07:52)
--- NOTE | 2018-08-29 07:53 | PDHPUP ---
History & Physical Update H&P update statement: This history and physical update is based on an assessment of the patient which was completed after admission or registration (within 24 hours), but prior to the surgery/procedure. H&P update: H&P reviewed & patient examined, no change in patient's condition since H&P completed
--- NOTE | 2018-08-29 07:56 | PDANEPAE ---
ANE Past Medical History - Pulmonary History Hx Oxygen in Use at Home: No Hx Sleep Apnea: Yes - Endocrine History Hx Diabetes: No - Chronic Pain History Chronic Pain: No ANE Review of Systems Review of Systems: ANE Patient History - Allergies Allergies/Adverse Reactions: baclofen Allergy (Verified 07/15/18 11:02) very bad side effects - Home Medications Home Medications: Herbals/Supplements -Info Only 1 tab PO DAILY 08/18/15 [Last Taken 08/26/18] Metoprolol Succinate 50 mg PO DAILY 08/18/15 [Last Taken 08/26/18] Levothyroxine [Synthroid 100 mcg (*)] 100 mcg PO DAILY@18 04/11/16 [Last Taken 08/25/18] Losartan Potassium [Cozaar 50 mg (*)] 50 mg PO DAILY 04/11/16 [Last Taken ] Vitamin K + Mk-7 90mcg 1 tab PO DAILY@1600 04/11/16 [Last Taken 08/25/18] Warfarin Sodium [Coumadin 3MG (*)] 3 mg PO TUFR@16 04/11/16 [Last Taken 08/22/18 ] Cholecalciferol Vit D3 [Vitamin D3 (*)] 6,000 units PO DAILY 08/26/18 [Last Taken 08/26/18] Warfarin Sodium [Coumadin 2MG (*)] 2 mg PO SUMOWETHSA@16 08/26/18 [Last Taken ] - Smoking Hx Smoking Status: Never smoked ANE Labs/Vital Signs - Labs Result Diagrams: 08/26/18 17:10 08/29/18 03:35 - Vital Signs Blood Pressure: 127/81 Heart Rate: 90 Respiratory Rate: 16 O2 Sat (%): 91 Height: 167.64 cm Weight: 66.3 kg ANE Physical Exam - Airway Neck exam: decreased ROM Mallampati Score: Class 2 Mouth exam: normal dental/mouth exam - Pulmonary Pulmonary: no respiratory distress, no rales or rhonchi, reduced air movement - Cardiovascular Cardiovascular: irregularly irregular - ASA Status ASA Status: IV ANE Anesthesia Plan Anesthesia Plan: GA with mask
[2018-08-29] MEDS ORDERED: NALOXONE HCL 0.4 MG/ML INJ IVP PRN (08:21)
--- NOTE | 2018-08-29 08:21 | POSTANESTH ---
Post Anesthetic Evaluation Cardiovascular Status: Normal, Stable, Similar to Pre-Op Cond Respiratory Status: Normal, Stable, Similar to Pre-op Cond. Level of Consciousness/Mental Status: Moderately Sleepy Pain Control: Adequate, Prn Tx Ordered Nausea/Vomiting Control: Adequate, Prn Tx Ordered Complications Possibly Related to Anesthesia: None Noted
[2018-08-29] MEDS: CHOLECALCIFEROL VIT D3 1,000 UNITS TAB PO SCH (09:42)
[2018-08-29] MEDS: METOPROLOL SUCCINATE XR 50 MG TAB PO SCH (09:42)
[2018-08-29] MEDS: FUROSEMIDE 20 MG/2 ML VIAL IVP SCH ×2 (09:42→15:12)
[2018-08-29] MEDS: LOSARTAN POTASSIUM 50 MG TAB PO SCH (09:42)
--- NOTE | 2018-08-29 13:38 | SOAPPROG ---
SOAP Progress Note Assessment/Plan: Assessment: 78 yo female admitted for nausea and weakness. Found to have CHF exacerbation in setting of mitral regurg. Plan: Fluid overload- BNP much improved with two days of lasix, BP tolerating nicely. NORBERTO today shows significant mitral prolapse, will need R/L heart cath and surg consult. Appreciate cards assistance Atrial fibrillation- rate controlled, warfarin for anticoag H/o HTN- stable currently Dispo- will likely d/c home tomorrow with plan for cath as oupt 08/29/18 13:39 Subjective: Christianne is sitting up in the chair, post NORBERTO. She says that overall she is feeling markedly improved from admission. No nausea, less fatigue and shortness of breath. But certainly not at baseline, energy-cam. Still with decreased appetite. Objective: Vital Signs Temp Pulse Resp BP Pulse Ox 36.6 C 86 15 114/57 L 93 08/29/18 11:04 08/29/18 11:04 08/29/18 11:04 08/29/18 11:04 08/29/18 11:04 Microbiology 08/27/18 13:30 Urine Culture - Final Urine,Clean Catch Four [place] Types Laboratory Results 08/26/18 17:10 08/29/18 03:35 08/28/18 08/29/18 08/30/18 05:59 05:59 05:59 Intake Total 855 200 150 Output Total 2250 1450 Balance -1395 -1250 150 PT 26.1 SEC (12.0-15.0) H 08/29/18 03:35 INR 2.54 (0.83-1.16) H 08/29/18 03:35 Gen- alert, oriented, vitals stable Head- normocephalic, atraumatic Resp- coarse bilaterally though improved from admit CV- irregularly irregular Abd- SNT, nondistended, +BS Extremities- no peripheral edema ICD10 Worksheet Patient Problems: Problems Problem Status Onset Dehydration Acute Nausea Acute Nausea vomiting and diarrhea Acute Weakness generalized Acute
--- NOTE | 2018-08-29 14:27 | SOAPPROG ---
SOAP Progress Note Assessment/Plan: Assessment: 1. Acute respiratory failure. This is likely multifactorial. Clearly, she is recovering from a recent episode of influenza however also appears to be volume overloaded. 2. Valvular heart disease. She has echocardiographic findings that suggest severe mitral regurgitation with moderate tricuspid regurgitation. She has no evidence of pulmonary hypertension. She has trivial aortic regurgitation. At least part of her respiratory failure is on the basis of her mitral valve disease. 3. Permanent atrial fibrillation. Currently rate controlled. Historically on systemic anticoagulation with warfarin. Plan: 1. I have consulted cardiothoracic surgery regarding their opinion regarding her suitability for surgical valve repair. Depending on their assessment of her candidacy we may also consider percutaneous options in the form of a MitraClip. 2. We will continue IV Lasix for today. Tomorrow I will plan to transition her to p.o. Diuretics. 3. She will continue on systemic anticoagulation. 4. I anticipate that she will be discharged home this weekend. I would like to manage her medically for the next several weeks/months to allow her to recover from this acute illness. 5. I will have her follow up with the [facility] and myself. 08/29/18 14:27 Subjective: She is doing well today. She has responded nicely to diuretic therapy. She currently is oxygenating greater than 90% on room air. She underwent a transesophageal echocardiogram earlier today. That report is dictated separately. Objective: Vital Signs Temp Pulse Resp BP Pulse Ox 36.6 C 86 15 114/57 L 93 08/29/18 11:04 08/29/18 11:04 08/29/18 11:04 08/29/18 11:04 08/29/18 11:04 Microbiology 08/27/18 13:30 Urine Culture - Final Urine,Clean Catch Four [place] Types Laboratory Results 08/26/18 17:10 08/29/18 03:35 08/28/18 08/29/18 08/30/18 05:59 05:59 05:59 Intake Total 855 200 150 Output Total 2250 1450 Balance -1395 -1250 150 PT 26.1 SEC (12.0-15.0) H 08/29/18 03:35 INR 2.54 (0.83-1.16) H 08/29/18 03:35 Physical Exam - Physical Exam General Appearance: WD/WN Neck: non-tender, full range of motion Respiratory: lungs clear Cardiac/Chest: systolic murmur (2/6 holosystolic murmur at the apex), irregularly irregular, No edema, No JVD Peripheral Pulses: 2+: carotid (R), carotid (L) Abdomen: non-tender Pelvic Exam: deferred Rectal: deferred ICD10 Worksheet Patient Problems: Problems Problem Status Onset Dehydration Acute Nausea Acute Nausea vomiting and diarrhea Acute Weakness generalized Acute
[2018-08-29] MEDS: [UNRECOGNIZED DRUG - OTHER] PO SCH (15:12)
[2018-08-29] MEDS: WARFARIN SODIUM 3 MG TAB PO SCH (15:12)
--- NOTE | 2018-08-29 15:37 | GCON ---
[f rep st] CONSULTATION DATE OF CONSULTATION: 08/29/2018 REASON FOR CONSULTATION: Severe mitral regurgitation with congestive heart failure. CHIEF COMPLAINT: Weakness and shortness of breath. HISTORY: The patient is a 78-year-old woman who was admitted from the clinic 3 days ago with nausea, vomiting, and failure to thrive. She was recently admitted to another hospital with flu symptoms an d was treated with Tamiflu. She was noted to have a recent urinary tract infection. She has also westfall d some nocturnal hypoxia. She was admitted then for treatment of her dehydration. PAST MEDICAL HISTORY: Remarkable for: 1. Previous stroke and she has left-sided deficit, although she is ambulatory. 2. Patient has history of mitral regurgitation and congestive heart failure. PHYSICAL EXAMINATION: GENERAL: She is supine in bed. She is somewhat frail. She has a walker at h er bedside. Left arm is essentially nonfunctional. CARDIAC: Reveals irregular rate and rhythm. Th ere is a soft murmur. RESPIRATORY: Reveals some good air movement but bibasilar crackles. Skin: W arm and dry. She is alert and oriented. STUDIES: Review of her echocardiogram shows good ventricular function with bileaflet prolapse of the mitral valve. There is a large central jet. LABORATORY STUDIES: Show her hematocrit is 35, white count is 6.2, and she is noted to have a BNP of 2440. IMPRESSION: This is an elderly frail woman with poor mobility due to previous stroke. She has recur rent congestive heart failure and severe mitral regurgitation as noted on the transesophageal echocar diogram today. RECOMMENDATIONS: I had a lengthy discussion with the patient and her . I think, to the exten t that this mitral regurgitation is contributing to her congestive heart failure, that she would be a candidate for therapeutic intervention. We discussed surgery as well as MitraClip. I think surgery would be difficult for her due to her frailty, advanced age, and poor mobility. I do think she woul d be a good candidate for MitraClip given the central jet and the mobility of her leaflets with witho ut a large gap evident between the anterior and posterior leaflets. I do think it will be appropriat e for Dr. Card to see her, and I told her and her that once she has been discharged, it wo uld be appropriate to have them come back and discuss again the potential intervention in more detail . I appreciate the opportunity to see her. /[id number]/MODL
[2018-08-29] MEDS: LEVOTHYROXINE 100 MCG TAB PO SCH (17:31)
--- NOTE | 2018-08-29 18:32 | ECHO ---
[email or web address] [address] [address] Main: [phone] Echocardiography Examination Transesophageal Name: REKHA ANGELES MR#: [id number] Study Date: 08/29/2018 Study Time: 07:33 AM Date of : 1940 Age: 78 year(s) Height: ( ) Weight: ( ) BSA: Gender: Female Examination: NORBERTO Contrast: Image Quality: Adequate Rhythm: Heart Rate: BP: / Indication: severe MR and CHF Procedure Staff Referring Physician: Dyslexia Teacher: Ketty Merritt RDCS Reading Physician: Rodríguez Izquierdo MD Requesting Provider: Ordering Physician: Edenilson Fonseca NP Indication: severe MR and CHF Acute complication: None Measurements Chambers TV/PV Label Value Normal Value Label Value Normal Value RA Pressure 5 mmHg RVSP 43 mmHg TR Pmax 38 mmHg TR Vmax 3.09 m/s Conclusions Normal left ventricular size and function. LVEF estimated to be 65-70%. Normal left ventricular free wall thickness without regional wall motion abnormalities. Severe biatrial enlargement. Left atrial appendage free of thrombus. Intact interatrial septum on color flow and 2 dimensional Doppler imaging. Trileaflet aortic valve without stenosis. Mild aortic regurgitation. 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 This is associated with severe mitral regurgitation. This is a central jet. Normal-appearing tricuspid valve. Moderate tricuspid regurgitation. Moderately elevated estimated RVSP at 43 mmHg. Findings Left Ventricle: Left ventricle is normal in size. Normal global systolic left ventricular function. Patient: REKHA ANGELES Study Date: 08/29/2018 Page 1 of 2 07:33 AM Right Ventricle: Normal size right ventricle. Right ventricular systolic function is normal. Left Atrium: The left atrium is severely dilated. Left Atrium Appendage: No thrombus is identified. IAS: Normal appearing atrial septum. Mitral Valve: Bileaflet severe mitral valve prolapse. Severe mitral regurgitation. Aortic Valve: Aortic leaflets are structurally normal. Mild aortic regurgitation is present. Tricuspid Valve: Tricuspid valve leaflets are structurally normal. Moderate tricuspid regurgitation. Right Ventricular systolic pressure is measured at 43 mmHg. Pulmonic Valve: Pulmonic leaflets are structurally normal. Mild pulmonic valve regurgitation is present. Exam Details Procedure Ordered: NORBERTO Procedure Status: Routine study Image Quality: Adequate Consent: Risks, alternatives of procedure explained to patient, informed consent obtained Probe Insertion: Attending concession manager Facility Location: CVC/Recovery (No Signature Object) Patient: REKHA ANGELES Study Date: 08/29/2018 Page 2 of 2 07:33 AM [id number]
[2018-08-30 04:23] LABS: INR 2.05 (0.83-1.16); PROTIME(PATIENT) 22.1 SEC (12.0-15.0)
[2018-08-30] MEDS: IPRATROPIUM/ALBUTEROL 3 ML DEYVIAL IH SCH ×3 (05:32→16:11)
[2018-08-30] MEDS: CHOLECALCIFEROL VIT D3 1,000 UNITS TAB PO SCH (08:46)
[2018-08-30] MEDS: METOPROLOL SUCCINATE XR 50 MG TAB PO SCH (08:47)
[2018-08-30] MEDS: FUROSEMIDE 20 MG/2 ML VIAL IVP SCH (08:47)
[2018-08-30] MEDS: LOSARTAN POTASSIUM 50 MG TAB PO SCH (08:47)
--- NOTE | 2018-08-30 10:59 | SOAPPROG ---
SOAP Progress Note Assessment/Plan: Assessment: 1. Acute respiratory failure. This is likely multifactorial. Clearly, she is recovering from a recent episode of influenza however also appears to be volume overloaded. 2. Valvular heart disease. She has echocardiographic findings that suggest severe mitral regurgitation with moderate tricuspid regurgitation. She has no evidence of pulmonary hypertension. She has trivial aortic regurgitation. At least part of her respiratory failure is on the basis of her mitral valve disease. 3. Permanent atrial fibrillation. Currently rate controlled. Historically on systemic anticoagulation with warfarin. 08/30/2018: Clinically she has shown improvement. I appreciate the consultation from cardiothoracic surgery. Based on their recommendations she is really not a surgical candidate however would be a candidate for MitraClip. Currently I think she is stable for hospital discharge. Plan: 1. I have transitioned her from IV to p.o. Lasix 40 mg daily. 2. She can continue her other medications. 3. I will see her back in the office later this week. 4. As an outpatient will consider referring her to structural Heart for consideration of MitraClip. 08/30/18 10:58 Subjective: She is doing much better today. There are plans for her to be discharged. She states that she feels nearly back to her baseline without limiting symptoms of dyspnea. Objective: Vital Signs Temp Pulse Resp BP Pulse Ox 36.5 C 85 14 109/65 91 L 08/30/18 08:00 08/30/18 08:00 08/30/18 08:00 08/30/18 08:00 08/30/18 08:00 Microbiology 08/27/18 13:30 Urine Culture - Final Urine,Clean Catch Four Igo Types Laboratory Results 08/26/18 17:10 08/30/18 03:35 08/29/18 08/30/18 08/31/18 05:59 05:59 05:59 Intake Total 200 1630 240 Output Total 1450 1900 Balance -1250 -270 240 PT 22.1 SEC (12.0-15.0) H 08/30/18 03:35 INR 2.05 (0.83-1.16) H 08/30/18 03:35 Physical Exam - Physical Exam General Appearance: WD/WN, no apparent distress Neck: non-tender, full range of motion Respiratory: chest non-tender, lungs clear Cardiac/Chest: systolic murmur (2/6 apical holosystolic murmur), irregularly irregular Peripheral Pulses: 2+: carotid (R), carotid (L) Abdomen: non-tender, soft Pelvic Exam: deferred Rectal: deferred ICD10 Worksheet Patient Problems: Problems Problem Status Onset Weakness generalized Acute Nausea vomiting and diarrhea Acute Dehydration Acute Nausea Acute
--- NOTE | 2018-08-30 11:34 | ASMTLACE ---
LACE Length of stay for Answers: 4-6 days current admission Acuity / Level of Answers: Yes Care: Did the patient have an inpatient admission? Comorbidities - select Answers: Cerebrovascular disease all that apply (CVA, TIA, aneurysms, vasc ular dementia) Congestive heart failure Other Notes: AFib; Hypothyroid # of Emergency department Answers: 0 visits in the last 6 months Score: 11 Date Signed: 08/30/2018 11:34 AM Electronically Signed By:Jada Naylor RN
--- NOTE | 2018-08-30 11:35 | PDIAF ---
- Diagnosis Code Status: Full Code - Medication Management Discharge Medications: electronically signed and located in the Home Medication List. - Orders Services needed: Home Care, Registered Nurse, Physical Therapy, Occupational Therapy Home Care Face to Face: I certify that this patient was under my care and that I had the required [id number] encounter meeting the encounter requirements on the discharge day. My findings support the fact that the patient is homebound as defined in Home Care Face to Face Continued: CMS Chapter 7 Medicare Benefits Manual 30.1.1 , The condition of the patient is such that there exists a normal inability to leave home and consequently, leaving home would require a considerable and taxing effort. Isolation Type: None Diet Recommendation: no restrictions on diet Diet Texture: Regular Texture Diet (Continue with whatever home care agency she has successfully used in the past. ) Weigh Patient: twice a week Watson: Not applicable - Labs/Radiology BMP Date: 09/01/18 PT/INR Date: 09/01/18 Other Lab Name, Date and Time: BNP - Follow Up Care Current Providers and Referrals: Denny Parmar MD [Primary Care Provider] -
--- NOTE | 2018-08-30 11:36 | ASMTDCNOTE ---
Case Management Discharge Discharge Order Complete? Answers: Yes Patient to Obtain Answers: Independently Medications Transportation Arranged Answers: Family/Friends Faxed Final Orders Answers: Yes Family Notified Answers: Yes Discharge Comments Notes: Patient discharged home with Nicolas. Orders sent to [facility] to resume RN/PT/OT services. Date Signed: 08/30/2018 11:35 AM Electronically Signed By:Jada Naylor RN
--- NOTE | 2018-08-30 12:03 | GDS ---
[f rep st] DISCHARGE SUMMARY ADMISSION DIAGNOSES: Nausea, possible respiratory infection, fatigue, history of urinary tract infec tion, recent history of influenza. DISCHARGE DIAGNOSES: Nausea, possible respiratory infection, fatigue, history of urinary tract infec tion, recent history of influenza, congestive heart failure secondary to significantly worsened wilberto l insufficiency. PROCEDURES: Echocardiogram, transesophageal echocardiogram. COMPLICATIONS: None. HOSPITAL COURSE: The patient was admitted with nausea. She was found to have a significantly elevat ed brain natriuretic peptide over 5000. Echocardiogram showed a reasonable ejection fraction. Howev er, she had significant worsening of her tricuspid as well as mitral insufficiency. She was placed o n an increased dose of Lasix. Of interest, she was not taking her Lasix routinely at home because of her recent illness. She diuresed very well, losing 8 pounds of fluid while in the hospital. Her sh ortness of breath resolved. She remained tired, but her strength dramatically improved. She was see n in consultation by Cardiology, and felt that she was probably a candidate for mitral clip surgery v ersus open heart surgery with mitral replacement as well as tricuspid replacement. Because of her in creased right-sided heart pressures, it seems logical to try the mitral clip first and see if it does not improve the function of her tricuspid valve prior to replacing this valve. It was felt that she was stable to be discharged to home, followed up as an outpatient, given adequate time to recover fr om her recent infections, and schedule the mitral clip procedure electively sometime within the next several weeks. DISCHARGE MEDICATIONS: Cholecalciferol 6000 units daily, furosemide 40 mg p.o. daily, levothyroxine 100 mcg daily, losartan potassium 50 mg daily, metoprolol extended release 50 mg daily, vitamin K2 MK -7 at 90 mcg daily, warfarin sodium 4 mg daily. FOLLOWUP: She will follow up with Dr. Izquierdo early next week. She will follow up with us in 2 weeks. Will follow up sooner if there is any reason. Hopefully Dr. Izquierdo will be able to obtain a pro time when he sees her early next week. If not, she will need to come to our office for a pro time. /[id number]/MODL
[2018-08-30 12:45] VITALS: BP 101/58
[2018-08-31] MEDS ORDERED: FUROSEMIDE 40 MG TAB PO SCH (09:00)
--- NOTE | 2018-08-31 10:41 | ASDISCHSUM ---
Discharge Information Plan Status:Home with Home Health Medically Cleared to Leave: Discharge Date:08/30/2018 04:24 PM CM D/C Disposition: ADT D/C Disposition:Home Health Service Projected Discharge Date:08/29/2018 11:00 AM Transportation at D/C: Discharge Delay Reason: Follow-Up Date:08/29/2018 11:00 AM Discharge Slot: Final Diagnosis: Placement Information Referral Type:*Home Health Care Services Referral ID:[id number] Provider Name:[facility] Address 1:[address] Phone Number: Address 2: Fax Number: City:[place] Selection Factors: State:[place] Patient Contact Information Contact Name:AMRITA Relationship: Address:[address] Work Phone: City:[place] [facility] Phone: [facility] Code:[place] [address] Email: Financial Information Financial Class:Medicare Primary Plan Desc:MEDICARE INPATIENT Primary Plan Number:[id number] Secondary Plan Desc:[facility] Secondary Plan Number:[id number] Assessment Information LACE LACE Length of stay for Answers: 4-6 days current admission Acuity / Level of Answers: Yes Care: Did the patient have an inpatient admission? Comorbidities - select Answers: Cerebrovascular disease all that apply (CVA, TIA, aneurysms, vasc ular dementia) Congestive heart failure Other Notes: AFib; Hypothyroid # of Emergency department Answers: 0 visits in the last 6 months Score: 11 Date Signed: 08/30/2018 11:34 AM Electronically Signed By:Jada Naylor RN [facility] CM Progress Note CM Note CM Note Notes: Reviewed chart, pt admitted to hospital directly from MD's office for nausea/weaknes. PT/OT to ceci HINOJOSA w/fKeren MENDEZ Plan: TBD Date Signed: 08/27/2018 03:01 PM Electronically Signed By:Sonali Moise RN [facility] CM Progress Note CM Note CM Note Notes: OT rec [facility]. PT ceci pending. Met with pt and at bedside. Pt reports she had just started skilled HC with [facility] prior to this hospitalization and wishes to resume services with [facility] (PT/OT/RN). Referral sent to [facility] in [facility]. Pt also private pays for [employer] two times a week for functional fitness. [facility], placed in chart. D/c plan of care: Home with [facility] Date Signed: 08/28/2018 04:24 PM Electronically Signed By:JULIA Nova Case Management Discharge Plan Note Case Management Discharge Discharge Order Complete? Answers: Yes Patient to Obtain Answers: Independently Medications Transportation Arranged Answers: Family/Friends Faxed Final Orders Answers: Yes Family Notified Answers: Yes Discharge Comments Notes: Patient discharged home with Nicolas. Orders sent to [facility] to resume RN/PT/OT services. Date Signed: 08/30/2018 11:35 AM Electronically Signed By:Jada Naylor RN Intervention Information Intervention Type:*SHELTON-Signed Date of Service:08/27/2018 10:46 AM Patient Type:Observation Staff Member:Dana Medrano Hours: Discipline: Severity: Comment:
== END 2018-08-30 16:24 | disposition home health service (06) | DRG 291 ==
LOC: F3E 15:27 → OBSVTOIN 08-27 14:55 → F2W 08-27 15:48
PROVIDERS: ADMIT Family Medicine; ATTEND Internal Medicine
PROC: B246ZZ4 Ultrasonography of Right and Left Heart, Transesophageal (ICD-10-PCS; principal; 2018-08-29)
DX: I50.33 Acute on chronic diastolic (congestive) heart failure (principal); J96.00 Acute respiratory failure, unspecified whether with hypoxia or hypercapnia; I69.354 Hemiplegia and hemiparesis following cerebral infarction affecting left non-dominant side; N39.0 Urinary tract infection, site not specified; I34.0 Nonrheumatic mitral (valve) insufficiency; R11.0 Nausea; M81.0 Age-related osteoporosis without current pathological fracture; I48.2 Chronic atrial fibrillation; E03.9 Hypothyroidism, unspecified; J06.9 Acute upper respiratory infection, unspecified; G47.31 Primary central sleep apnea; I11.0 Hypertensive heart disease with heart failure; E78.5 Hyperlipidemia, unspecified; Z79.01 Long term (current) use of anticoagulants
CPT/HCPCS: 97116-GP; 97161-GP; 97166-GO; 97530-GO; 97535-GO; G0378; G0379; J1940; J2704; J3475

== ENCOUNTER 2018-09-18 08:10 | Day surgery (SDC) | payer OTHER ==
[2018-09-18] MEDS ORDERED: DIAZEPAM 5 MG TAB PO ONE (08:11)
[2018-09-18] MEDS ORDERED: FAMOTIDINE 20 MG TAB PO ONE (08:11)
[2018-09-18] MEDS ORDERED: diphenhydrAMINE 25 MG CAP PO ONE (08:11)
[2018-09-18] MEDS ORDERED: ASPIRIN EC 325 MG TAB PO ONE (08:11)
[2018-09-18] MEDS ORDERED: NS 1,000 ML IV ONE (08:11)
[2018-09-18 08:47] LABS: PLATELET COUNT 246 10^3/uL (150-400)
[2018-09-18 09:07] LABS: INR 1.45 (0.83-1.16)
--- NOTE | 2018-09-18 10:44 | PDPROPOC ---
Sedation Plan of Care Sedation Plan of Care: mental status noted, patient educated of risks, benefits , alternatives, patient can tolerate sedation ASA Classification: ASA 2 Planned drugs: fentanyl, midazolam Mallampati Score: Class 2 Mallampati Reference Image: Patient passed 3-3-2 rule?: Yes
[2018-09-18] MEDS ORDERED: MIDAZOLAM 2 MG/2 ML VIAL ONE (11:07)
[2018-09-18] MEDS ORDERED: IOPAMIDOL (ISOVUE-370) 150 ML BTL IV ONE (11:07)
[2018-09-18] MEDS ORDERED: fentaNYL 100 MCG/2 ML INJ ONE (11:07)
[2018-09-18] MEDS ORDERED: LIDOCAINE 1% 300 MG/30 ML SDV ONE (11:07)
[2018-09-18] MEDS ORDERED: CLOPIDOGREL BISULFATE 75 MG TAB PO ONE (11:15)
[2018-09-18] MEDS ORDERED: NITROGLYCERIN 0.4 MG BTL SL PRN (11:55)
[2018-09-18] MEDS ORDERED: HYDROCODONE/APAP 5/325 TAB PO PRN (11:55)
[2018-09-18] MEDS ORDERED: ATROPINE SULFATE 1 MG/10 ML SYR IVP PRN (11:55)
[2018-09-18] MEDS ORDERED: OXYCODONE/APAP 5/325 TAB PO PRN (11:55)
[2018-09-18] MEDS ORDERED: ONDANSETRON 4 MG/2 ML VIAL IVP PRN (11:55)
--- NOTE | 2018-09-18 13:31 | CPIP ---
[f rep st] INVASIVE CARDIAC PROCEDURE DATE OF PROCEDURE: 09/18/2018 INDICATION FOR PROCEDURE: Severe mitral regurgitation. PROCEDURE: 1. Nonselective left groin sheathogram 7-Eritrean sheath left common femoral vein. 2. Right heart catheterization with Gruetli Laager-Jennyfer catheter. 3. Bilateral coronary angiography. 4. Left heart catheterization. 5. Left ventriculogram. HISTORY: The patient is a 78-year-old female who has a history of prior stroke. The patient has sev ere mitral regurgitation and has been admitted to the hospital for heart failure recently. She has b een seen on an outpatient basis and referred for mitral valve repair consideration. Given her histor y of CVA, Dr. Alfaro felt the patient would be better suited for MitraClip procedure. The patient is here for right and left heart catheterization in anticipation for eventual clip/ DESCRIPTION OF PROCEDURE: After informed consent the patient was brought to [facility] where the left groin was prepped and draped in the sterile fashion. Using local lidocaine, a short 6-Eritrean sheath placed into the left femoral artery verified angiographically. Of note the femoral v essels are extremely tiny, which were almost the same size of the 6-Eritrean sheath placed in. The 7-F rench sheath placed in left common femoral vein. A Gruetli Laager-Jennyfer catheter was advanced. Wedge pressure was mean 11, A-wave 13, V-wave 13. PA pressure systolic 35, diastolic 10, mean of 21. RV pressure s ystolic 28, diastolic 4, end of 6. RA pressure mean of 6, A-wave 7, and V-wave 8. Cardiac output wa s measured to be 2.5 with Kalee of 1.4. AO sat was 98%. PA sat was 67%. Gruetli Laager-Jennyfer catheter was then removed. A JL4 catheter was advance into the left coronary artery. Images of the left coronary artery reveale d normal left main. Left circumflex artery appeared to be a codominant circulation giving off a larg e marginal and 1 proximally. Distally, LPLS appeared to be free of disease. The LAD had mild 20% to 30% proximal disease. Distally, it appeared to be widely patent. There was a medium size diagonal artery coming off the vessel, which was healthy and free of disease. After the images were obtained, the JL4 catheter was removed. The JR4 catheter was advanced into the right coronary artery. Images of the right coronary artery re vealed normal ostial, proximal and mid distal RCA. The RPDA appeared to be widely patent, free of di sease. The JR4 catheter was removed. Over 0.035 wire, the pigtail catheter was advanced into the le ft ventricle. EDP was 10 mmHg. Left ventriculogram in the DORADO projection showed EF of 65% with normal LV function with at least yaw re MR as the left atrium was dramatically filling with this ventriculogram. No pullback gradient bet ween the LV and the aorta. Pigtail catheter was removed over a 0.035 wire. The left groin was closed with manual pressure. The patient tolerated the procedure well with no complications. IMPRESSION: 1. 20% to 30% disease in the proximal left anterior descending. 2. Codominant circulation with no significant disease in the right coronary artery and the left circ umflex artery. 3. Reduced cardiac output. 4. Severe mitral regurgitation with a normal ejection fraction. PLAN: The patient has evidence of mitral regurgitation on her catheterization today with a reduced c ardiac output. Given her symptoms and recent heart failure, I feel she would be a candidate for movi ng forward with MitraClip. She will be discharged later to home today and will follow up in the offi ce in 1-2 weeks' time. /[id number]/MODL
--- NOTE | 2018-09-18 20:22 | CPIP ---
WRONG PATIENT--PLEASE DISREGARD THIS ENTRY [f rep st] I /[id number]/MODL MTDD
== END 2018-09-18 15:55 | disposition home or self-care (01) ==
LOC: FCATH 08:10
PROVIDERS: ATTEND Internal Medicine Cardiovascular Disease
DX: Z01.810 Encounter for preprocedural cardiovascular examination (principal); I34.0 Nonrheumatic mitral (valve) insufficiency; I25.10 Atherosclerotic heart disease of native coronary artery without angina pectoris; I50.9 Heart failure, unspecified; I11.0 Hypertensive heart disease with heart failure; I48.91 Unspecified atrial fibrillation; I69.354 Hemiplegia and hemiparesis following cerebral infarction affecting left non-dominant side; G47.31 Primary central sleep apnea; Z91.81 History of falling; E03.9 Hypothyroidism, unspecified; E78.5 Hyperlipidemia, unspecified; H25.9 Unspecified age-related cataract; M81.0 Age-related osteoporosis without current pathological fracture; Z79.01 Long term (current) use of anticoagulants; Z87.81 Personal history of (healed) traumatic fracture; Z90.710 Acquired absence of both cervix and uterus
CPT/HCPCS: J1644; J2250; J3010; Q9967

== ENCOUNTER 2018-10-06 06:30 | Inpatient (IN) | payer OTHER ==
--- NOTE | 2018-10-06 06:29 | PDANEPAE ---
ANE History of Present Illness mitral regurge ANE Past Medical History - Cardiovascular History Hx Hypertension: No Hx Arrhythmias: Yes Hx Chest Pain: No Hx Coronary Artery / Peripheral Vascular Disease: No Hx CHF / Valvular Disease: Yes Hx Palpitations: No Cardiovascular History Comment: a fib. CHF-recent EF 65-70%. mild AI, Severe MR, mod TR - Pulmonary History Hx COPD: No Hx Asthma/Reactive Airway Disease: No Hx Recent Upper Respiratory Infection: No Hx Oxygen in Use at Home: No Hx Sleep Apnea: Yes - Endocrine History Hx Diabetes: No Hypothyroid: Yes Hyperthyroid: No Obesity: no - Neurological & Psychiatric Hx Hx Neurological and Psychiatric Disorders: Yes Neurological / Psychiatric History Comment: CVA with hemiparesis. SDH - Chronic Pain History Chronic Pain: No ANE Review of Systems Review of systems is: negative Review of Systems: - Exercise capacity Exercise capacity: <4 METS ANE Patient History - Allergies Allergies/Adverse Reactions: baclofen Allergy (Verified 07/15/18 11:02) very bad side effects - Home Medications Home medications: home medication list seen and reviewed Home Medications: Herbals/Supplements -Info Only 1 tab PO DAILY 08/18/15 [Last Taken 08/26/18] Levothyroxine [Synthroid 100 mcg (*)] 100 mcg PO DAILY@18 04/11/16 [Last Taken 08/25/18] Vitamin K + Mk-7 90mcg 1 tab PO DAILY@1600 04/11/16 [Last Taken 08/25/18] Warfarin Sodium [Coumadin 3MG (*)] 3 mg PO SUMOTUTHFR@16 04/11/16 [Last Taken ] Cholecalciferol Vit D3 [Vitamin D3 (*)] 6,000 units PO DAILY 08/26/18 [Last Taken 08/26/18] Enoxaparin [Lovenox 60 MG (*)] 60 mg SQ Q12H 09/11/18 [Last Taken 09/17/18 18:00 ] Losartan Potassium [Cozaar 25 mg (*)] 25 mg PO HS 09/11/18 [Last Taken Unknown] Metoprolol Succinate Xr [Toprol Xl 50 mg (*)] 50 mg PO DAILY 09/11/18 [Last Taken 09/18/18] Multivitamins W-Minerals [Thera M Plus Tablet (*)] 1 each PO DAILY 09/11/18 [ Last Taken Unknown] Warfarin Sodium [Coumadin 2MG (*)] 2 mg PO WESA@16 09/11/18 [Last Taken 18:00] Spironolactone [Aldactone] 50 mg PO DAILY 09/18/18 [Last Taken 09/18/18] - NPO status NPO Status: no food or drink >8 hours - Anes Hx Anes Hx: no prior problems - Smoking Hx Smoking Status: Never smoked - Family Anes Hx Family Anes Hx: none ANE Physical Exam - Airway Neck exam: FROM Mallampati Score: Class 2 Mouth exam: normal dental/mouth exam - Pulmonary Pulmonary: no respiratory distress, clear to auscultation - Cardiovascular Cardiovascular: systolic murmur, irregularly irregular - ASA Status ASA Status: IV ANE Anesthesia Plan Anesthesia Plan: general endotracheal anesthesia
[2018-10-06] MEDS ORDERED: fentaNYL 100 MCG/2 ML INJ ONE (06:35)
[2018-10-06] MEDS ORDERED: PROPOFOL 200 MG/20 ML VIAL ONE (06:36)
[2018-10-06] MEDS ORDERED: ceFAZolin 2 GM/DEXTROSE 100 ML IV ONE (06:38)
[2018-10-06] MEDS ORDERED: NS 1,000 ML IV ONE (06:38)
[2018-10-06] MEDS ORDERED: LIDOCAINE 2% 5 ML SDV ONE (06:41)
[2018-10-06] MEDS ORDERED: HEPARIN 10,000 UNIT/10 ML MDV (1,000 UNIT/ML) ONE (06:41)
[2018-10-06] MEDS ORDERED: ROCURONIUM 100 MG/10 ML VIAL ONE (06:41)
[2018-10-06] MEDS ORDERED: LIDOCAINE 1% 300 MG/30 ML SDV ONE (06:57)
[2018-10-06 07:30] LABS: INR 1.37 (0.83-1.16); PROTIME(PATIENT) 16.3 SEC (12.0-15.0)
[2018-10-06] MEDS ORDERED: PROPOFOL/EMULSION 500 MG/50 ML BOTTLE IV ONE (07:36)
[2018-10-06] MEDS ORDERED: ONDANSETRON 4 MG/2 ML VIAL ONE (09:51)
[2018-10-06] MEDS ORDERED: GLYCOPYRROLATE 0.2 MG/1 ML VIAL ONE (09:51)
[2018-10-06] MEDS ORDERED: NEOSTIGMINE METHYLSULFATE 10 MG/10 ML MDV ONE (09:51)
[2018-10-06] MEDS ORDERED: ATROPINE SULFATE 1 MG/10 ML SYR IVP PRN (09:58)
[2018-10-06] MEDS ORDERED: oxyCODONE IR 5 MG TAB PO PRN (09:58)
[2018-10-06] MEDS ORDERED: ONDANSETRON DISINTEGRATING 4 MG TAB PO PRN (09:58)
[2018-10-06] MEDS ORDERED: IBUPROFEN 800 MG TAB PO PRN (09:58)
[2018-10-06] MEDS ORDERED: hydrALAZINE 20 MG/ML VIAL IVP PRN (09:58)
[2018-10-06] MEDS ORDERED: HYDROmorphONE/DILAUDID 1 MG/ML INJ IVP PRN (09:58)
[2018-10-06] MEDS ORDERED: ONDANSETRON 4 MG/2 ML VIAL IVP PRN (09:58)
--- NOTE | 2018-10-06 10:12 | PDMN ---
Medical Necessity Medical necessity: 78 yo s/p CPT 79519, M[facility] Cardiovascular Surgery or Procedure, Mitral Clip, MC IP only
[2018-10-06] MEDS ORDERED: NALOXONE HCL 0.4 MG/ML INJ IVP PRN (10:26)
--- NOTE | 2018-10-06 10:26 | POSTANESTH ---
Post Anesthetic Evaluation Cardiovascular Status: Normal, Stable Respiratory Status: Normal, Stable Level of Consciousness/Mental Status: Can Participate in Eval Pain Control: Adequate, Prn Tx Ordered Nausea/Vomiting Control: Adequate, Prn Tx Ordered Complications Possibly Related to Anesthesia: None Noted
--- NOTE | 2018-10-06 11:53 | CPIP ---
[f rep st] INVASIVE CARDIAC PROCEDURE DATE OF PROCEDURE: 10/06/2018 INDICATION FOR PROCEDURE: Severe symptomatic mitral regurgitation. CO-SURGEONS: Dr. Janusz Ignacio PROCEDURE: 1. 5-Sammarinese sheath left common femoral artery. 2. 8-Sammarinese sheath right common femoral vein upsized to a 24-Sammarinese MitraClip sheath after transsept al access with [place] catheter. 3. Placement of mitral clip x1 for severe symptomatic mitral regurgitation. HISTORY: Briefly, this is a 78-year-old female with history of severe symptomatic mitral regurgitati on deemed to be a very poor candidate for open heart surgery. Given her history of CVA and extreme f railty. The patient was consented for MitraClip placement. DESCRIPTION OF PROCEDURE: After informed consent, the patient was brought to [facility]. The patient has a history of class III, class IV heart failure, as well as degenerative mitral valve disease as docume nted on her prior NORBERTO. The patient was electively intubated. NORBERTO performed by Dr. Jessica Capone. 2 g of Ancef were administered IV prior to the case. A 5-Sammarinese sheath the left common femoral artery, 8 -Sammarinese sheath placed in right common femoral vein. This was upsized to a 20-Sammarinese sensor sheath. Patient was administered a total of 8000 of heparin during the case. Transseptal access was accessed with a C0 [place] catheter with a [place] wire placed in the left atrium. The 20-Sammarinese sheath was rem emiliano. The transseptal needle was removed and an Abbot MitraClip steerable guide catheter was advance d into the left atrium over the [place] wire. Once this performed, left atrial pressure was measured t o be approximately 20 to 25 mmHg. ACT was consistently over 250 during the case. Pre-NORBERTO images showed severe A2 P2 jet with a mild lateral jet as well. We then decided to proceed w ith placement of a MitraClip XT, which after correct manipulation was placed over the A2 P2. The cli p was then deployed across A2 P2. Of note, the mean gradient prior to clip deployment was approximat stacy 1. Once the clip was placed in its position, the gradient was noted to be elevated approximately 6; however, at this time the mitral regurgitation was reduced from severe MR down to mild with no fu rther reversal of pulmonary vein flow. The clip was deployed successfully. After deployment, the le ft atrial pressure was measured approximately 18 to 20. The sheath was then pulled back. The right groin was then closed with a pursestring suture. Left gr oin will be sutured in place. Patient tolerated the procedure well with no complications. IMPRESSION: Successful placement of MitraClip XT for severe mitral regurgitation reducing mitral reg urgitation from severe to mild with no further reversal of pulmonary vein flow. PLAN: The patient be admitted to the PCU. Further orders following clinical course. /[id number]/MODL
[2018-10-06] MEDS ORDERED: DIAZEPAM 5 MG TAB PO PRN (13:33)
[2018-10-06] MEDS ORDERED: WARFARIN SODIUM 3 MG TAB PO SCH (16:00)
[2018-10-06] MEDS ORDERED: [UNRECOGNIZED DRUG - OTHER] PO SCH (16:00)
[2018-10-06] MEDS ORDERED: LEVOTHYROXINE 100 MCG TAB PO SCH (18:00)
[2018-10-06] MEDS ORDERED: WARFARIN SODIUM 4 MG TAB PO ONE (18:00)
[2018-10-06] MEDS: ACETAMINOPHEN 325 MG TAB PO SCH ×2 (18:22→18:23)
--- NOTE | 2018-10-06 20:32 | ECHO ---
[email or web address] [address] [address] Main: [phone] Echocardiography Examination Transesophageal Name: REKHA ANGELES MR#: [id number] Study Date: 10/06/2018 Study Time: 07:56 AM Date of : 1940 Age: 78 year(s) Height: ( ) Weight: ( ) BSA: Gender: Female Examination: NORBERTO Contrast: Image Quality: Adequate Rhythm: Heart Rate: BP: / Indication: MitraClip Procedure Staff Referring Physician: Supervisor Finishing Department: Ketty Merritt RDCS Reading Physician: Jessica Capone MD Requesting Provider: Ordering Physician: CHRISTEL Indication: MitraClip Acute complication: None Measurements Chambers AV/MV Label Value Normal Value Label Value Normal Value MV VTI 43.7 cm MV PGmax 13 mmHg MV PGmean 7 mmHg MR Reg. Volume 40 ml MR Vmax 5.05 m/s MR VTI 176 cm MR (ERO) 0.23 cm2 MR PISA Radius 0.7 cm MR PISA Alias V. 38.5 cm/s TV/PV Label Value Normal Value RA Pressure 5 mmHg RVSP 35 mmHg TR Pmax 30 mmHg TR Vmax 2.72 m/s Conclusions Patient: REKHA ANGELES Study Date: 10/06/2018 Page 1 of 2 07:56 AM 1. NORBERTO guidance during XT MitraClip implantation 2. Normal biventricular size and systolic function 3. Pre Clip MR severe, reduced to mild. 4. Mild AR 5. No pericardial effusion Findings Left Ventricle: Left ventricle is normal in size. Normal global systolic left ventricular function. There are no regional wall motion abnormalities. Right Ventricle: Normal size right ventricle. Right ventricular systolic function is normal. Left Atrium: Post procedure, there is spontaneous contrast visualized in the left atrium and left atrial appendage. There are two left to right shunts visualized with color flow doppler consistent with transseptal puncture. Left Atrium Appendage: No thrombus is identified. Mitral Valve: Successful implantation of an XT MitraClip coapting A2 P2 of the mitral leaflet. The mitral regurgitation was reduced from severe to mild. There was a second small jet of mitral regurgitation that was identified pre procedurally and not intervened upon. Preoperatively, the mean gradient range was from 1-3 mmhg. Postoperatively, the mean gradient range was from 6-9 mmhg. Improvement in pulmonary vein inflow pattern suggesting decreased left atrial pressure. Aortic Valve: Aortic leaflets are structurally normal. Mild aortic regurgitation is present. Tricuspid Valve: Tricuspid valve leaflets are structurally normal. Moderate tricuspid regurgitation. Right Ventricular systolic pressure is measured at 35 mmHg. Pulmonary artery pressure normal. Pulmonic Valve: Pulmonic leaflets are structurally normal. No significant pulmonic valve regurgitation is evident. Pericardium: No pericardial effusion. Exam Details Procedure Ordered: NORBERTO Procedure Status: Routine study Image Quality: Adequate Consent: Risks, alternatives of procedure explained to patient, informed consent obtained Probe Insertion: Attending apartment community assistant manager Facility Location: Manager Of Financial Planning (No Signature Object) Patient: REKHA ANGELES Study Date: 10/06/2018 Page 2 of 2 07:56 AM [id number]
[2018-10-07] MEDS: ACETAMINOPHEN 325 MG TAB PO SCH ×2 (02:37→07:34)
[2018-10-07 05:39] LABS: PLATELET COUNT 227 10^3/uL (150-400)
[2018-10-07 05:40] LABS: INR 1.24 (0.83-1.16); PROTIME(PATIENT) 15.1 SEC (12.0-15.0)
--- NOTE | 2018-10-07 06:47 | PDCARPN ---
Cardiology Progress Note Chief Complaint: s/p mitraclip Assessment/Plan: Assessment: s/p mitraclip Plan: 10/07/18 06:46 doing well IS check echo OOB d/c suture in groin Subjective: doing well Reviewed/Discussed With: multidisciplinary team Time Spent with Patient: greater than 25 minutes Time Spent with Patient: Greater than 25 minutes spent on this patients care, greater than 50% of time spent counseling, educating, and coordinating care regarding the above mentioned plan. Objective: Vital Signs (8 Hrs) Temp Pulse Resp BP Pulse Ox 10/07/18 04:00 36.7 C 89 16 95/52 L 91 L 10/06/18 23:26 37.0 C 87 19 95/50 L 90 L Intake/Output (24 Hrs) 10/06/18 10/07/18 10/08/18 05:59 05:59 05:59 Intake Total 650 Output Total 60 Balance 590 Intake: Oral (ml) 650 Output: Urine (ml) 60 Catheter 60 Other: Weight 63.503 kg Result Diagrams: 10/07/18 05:07 10/07/18 05:07 - Physical Exam Constitutional: no apparent distress Eyes: PERRL Ears, Nose, Mouth, Throat: moist mucous membranes Cardiovascular: systolic murmur, irregularly irregular Peripheral Pulses: 1+: femoral (R), femoral (L) Respiratory: clear to auscultate bilat Gastrointestinal: normoactive bowel sounds Genitourinary: no suprapubic tenderness Skin: no rashes Musculoskeletal: no muscular tenderness Neurologic: AAOx3 Psychiatric: cooperative ICD10 Worksheet Patient Problems: Problems Problem Status Onset Dehydration Acute Nausea Acute Nausea vomiting and diarrhea Acute Weakness generalized Acute
[2018-10-07 08:04] VITALS: BP 103/56
--- NOTE | 2018-10-07 08:56 | ECHO ---
[email or web address] [address] [address] Main: [phone] Echocardiography Examination Transthoracic Name: REKHA ANGELES MR#: [id number] Study Date: 10/07/2018 Study Time: 07:27 AM Date of : 1940 Age: 78 year(s) Height: 167.6 cm (66 in.) Weight: 63.5 kg (140 lb.) BSA: 1.72 m2 Gender: Female Examination: Echo Contrast: Image Quality: Adequate Rhythm: Heart Rate: BP: 95 mmHg/50 mmHg Indication: Post MitraClip Procedure Staff Referring Physician: Napper Grinder: Ketty Merritt [facility] Reading Physician: Martin Card MD Requesting Provider: Ordering Physician: Martin Card MD Indication: Post MitraClip Measurements Chambers AV/MV Label Value Normal Value Label Value Normal Value LVOTd 1.7 cm (1.8cm - 2cm) AV PGmax 4 mmHg LVOT VTI 13.6 cm (18cm - 22cm) AV PGmean 3 mmHg LVDd, 2D 3.8 cm (3.9cm - 5.3cm) AV Vmax 1.05 m/s LVDs, 2D 2.4 cm (2.1cm - 4cm) LIZ (VTI) 1.5 cm2 IVSd, 2D 0.9 cm (0.6cm - 1.1cm) MV E Vmax 2.17 m/s LVPWd, 2D 1 cm MV DT 382 ms LVEF, 2D 69 % (54% - 74%) MV VTI 60.5 cm LVOT PGmean 1 mmHg MVA D (continuity eq.) 0.5 cm2 LVOT Vmean 0.52 m/s MV PGmax 22 mmHg RVDd, 2D 2.9 cm (1.9cm - 3.8cm) MV PGmean 10 mmHg LA Volume, BP 127 ml (22ml - 52ml) MV PHT 0.11 s LADs, 2D 4.4 cm (2.7cm - 3.8cm) MVA PHT 1.9 cm2 LAESV index, BP 73.8 ml/m2 MV PHT 113 ms RA Area 24.1 cm2 TV/PV Additional Vessels Label Value Normal Value Label Value Normal Value RA Pressure 5 mmHg AoAsc 3.1 cm RVSP 47 mmHg AoRoot, 2D 2.7 cm (1.4cm - 2.6cm) TR Pmax 42 mmHg IVC 1.8 cm (1.2cm - 2.3cm) TR Vmax 3.23 m/s Patient: REKHA ANGELES Study Date: 10/07/2018 Page 1 of 3 07:27 AM PV PGmax 2 mmHg PV Vmax, Caliper 0.68 m/s (0.6m/s - 0.9m/s) Conclusions Left Ventricle: EF range is estimated at 55 % - 60 %. Mitral Valve: The XT MitraClip appears well seated. There are two jets of mild mitral regurgitation. The mean gradient ranges from 6-10 mmhg. Aortic Valve: Mild aortic regurgitation is present. Tricuspid Valve: Moderate to severe tricuspid regurgitation. Right Ventricular systolic pressure is measured at 47 mmHg. Findings Left Ventricle: Left ventricle is normal in size. Normal global systolic left ventricular function. EF range is estimated at 55 % - 60 %. Left ventricle wall thickness is normal. There are no regional wall motion abnormalities. No LV hypertrophy. Right Ventricle: Normal size right ventricle. Right ventricular systolic function is normal. Left Atrium: The left atrium is severely dilated. Mitral Valve: Mitral valve is normal in appearance. The XT MitraClip appears well seated. There are two jets of mild mitral regurgitation. The mean gradient ranges from 6-10 mmhg. Aortic Valve: Aortic leaflets are structurally normal. Mild aortic regurgitation is present. There is no aortic stenosis. Tricuspid Valve: Tricuspid valve leaflets are structurally normal. Moderate to severe tricuspid regurgitation. No tricuspid valve stenosis. Right Ventricular systolic pressure is measured at 47 mmHg. Pulmonary artery pressure is mildly to moderately increased. Pulmonic Valve: Pulmonic leaflets are structurally normal. Mild pulmonic valve regurgitation is present. Aorta: The aortic root size in 2D measures 2.7 cm. The ascending aorta measures 3.1 cm. Aorta Measurements AoRoot, 2D is 2.7 cm. IVC: The inferior vena cava is normal in size. Pericardium: No pericardial effusion. Exam Details Procedure Ordered: Echo Procedure Components: Complete 2D imaging, M-mode, Complete spectral Doppler, Color Doppler Procedure Status: Routine study Image Quality: Adequate Facility Location: Bedside Patient: REKHA ANGELES Study Date: 10/07/2018 Page 2 of 3 07:27 AM (No Signature Object) Patient: REKHA ANGELES Study Date: 10/07/2018 Page 3 of 3 07:27 AM [id number]
[2018-10-07] MEDS ORDERED: MULTIVITAMINS W-MINERALS 1 EACH TAB PO SCH (09:00)
[2018-10-07] MEDS ORDERED: FUROSEMIDE 40 MG TAB PO SCH (09:00)
[2018-10-07] MEDS ORDERED: CHOLECALCIFEROL VIT D3 1,000 UNITS TAB PO SCH (09:00)
[2018-10-07] MEDS ORDERED: Herbals/Supplements -Info Only PO SCH (09:00)
[2018-10-07] MEDS ORDERED: METOPROLOL SUCCINATE XR 50 MG TAB PO SCH (09:00)
--- NOTE | 2018-10-07 09:52 | GDS ---
[f rep st] DISCHARGE SUMMARY DISCHARGE DIAGNOSIS: Mitral regurgitation. HOSPITAL COURSE: Briefly, this is a 78-year-old female with history of severe mitral regurgitation. Patient was deemed to be very frail candidate for open mitral valve repair by CT surgery. The patie nt underwent successful MitraClip placement with MitraClip XT x1 on 10/06/2018. Postprocedure, the patient was doing well. The patient's echocardiogram post-procedure shows intact mitral clip placement with significant reduction of her MR from severe down to trivial to trivial/mil d. The patient did have an increased gradient after the mitral clip was placed of approximately 6 to 8; however, she has been ambulating without issues and no increased shortness of breath. The patient will be discharged home this morning with her home medications, including Coumadin and br idged with Lovenox. She will follow up in the office in 1 week's time. /[id number]/MODL
--- NOTE | 2018-10-07 10:24 | ASDISCHSUM ---
Discharge Information Plan Status:Home with No Needs Medically Cleared to Leave:10/07/2018 Discharge Date:10/07/2018 CM D/C Disposition:Home, Routine, Self-Care ADT D/C Disposition: Projected Discharge Date:10/07/2018 Transportation at D/C: Discharge Delay Reason: Follow-Up Date:10/07/2018 Discharge Slot: Final Diagnosis: Placement Information Patient Contact Information Contact Name:AMRITA Relationship: Address:[address] [place] [address] Work Phone: City:[facility] Phone: State/Zip Code:[place] [address] Email: Financial Information Financial Class:Medicare Primary Plan Desc:MEDICARE INPATIENT Primary Plan Number:[id number] Secondary Plan Desc[facility] Secondary Plan Number:[id number] Assessment Information LACE LACE Length of stay for Answers: 1 day current admission Acuity / Level of Answers: Yes Care: Did the patient have an inpatient admission? Comorbidities - select Answers: Cerebrovascular disease all that apply (CVA, TIA, aneurysms, vasc ular dementia) Congestive heart failure Other Notes: AFib; Hypothyroid # of Emergency department Answers: 0 visits in the last 6 months Score: 8 Date Signed: 10/07/2018 10:22 AM Electronically Signed By:Lisa Smiley RN Intervention Information
--- NOTE | 2018-10-07 11:41 | PDCARPN ---
Cardiology Progress Note Chief Complaint: Mitral Valve Regurgitation Assessment/Plan: Assessment: S/P Mitral Valve Clip. Dr Card evaluated and examined her earlier this morning. I am asked to remove her Purse string stitch. Right groin Site is intact with no pain, ecchymosis, enduration or bleeding. Instructions for groin care previously provided by surgical staff. Question answered and reinforced. Stitch removed with no complications. Light dressing applied for trip home. ECHO this AM showed the Mitral clip well seated. Two jets of mild Mitral Regurgitation. She is stable for discharge at this time. Plan:Discharge home. 10/07/18 11:35 10/07/18 11:45 Subjective: anxious to go home. Reviewed/Discussed With: multidisciplinary team Objective: Vital Signs (8 Hrs) Temp Pulse Resp BP Pulse Ox 10/07/18 08:00 36.8 C 96 18 103/56 L 92 10/07/18 04:00 36.7 C 89 16 95/52 L 91 L Intake/Output (24 Hrs) 10/06/18 10/07/18 10/08/18 05:59 05:59 05:59 Intake Total 650 Output Total 60 500 Balance 590 -500 Intake: Oral (ml) 650 Output: Urine (ml) 60 500 Bedside Commode 500 Catheter 60 Other: Weight 63.503 kg Number of Stools Bedside Commode 1 Result Diagrams: 10/07/18 05:07 10/07/18 05:07 ICD10 Worksheet Patient Problems: Problems Problem Status Onset Dehydration Acute Nausea Acute Nausea vomiting and diarrhea Acute Weakness generalized Acute
[2018-10-08] MEDS ORDERED: WARFARIN SODIUM 2 MG TAB PO SCH (16:00)
== END 2018-10-07 11:37 | disposition home or self-care (01) | DRG 229 ==
LOC: F2W 06:30 → EDSTATUS 07:30 → F2W 16:48
PROVIDERS: ADMIT Internal Medicine Cardiovascular Disease; ATTEND Internal Medicine Cardiovascular Disease
DX: I34.0 Nonrheumatic mitral (valve) insufficiency (principal); Z00.6 Encounter for examination for normal comparison and control in clinical research program; I48.91 Unspecified atrial fibrillation; I69.354 Hemiplegia and hemiparesis following cerebral infarction affecting left non-dominant side; G47.37 Central sleep apnea in conditions classified elsewhere; E03.9 Hypothyroidism, unspecified; I50.9 Heart failure, unspecified; Z79.01 Long term (current) use of anticoagulants; Z86.73 Personal history of transient ischemic attack (TIA), and cerebral infarction without residual deficits
CPT/HCPCS: 97161-GP; C1769; C1893; C1894; J0690; J1644; J2405; J2704; J3010

== ENCOUNTER 2018-10-07 16:17 | Emergency (ER) | payer OTHER ==
[2018-10-07 16:30] VITALS: BP 103/58
--- NOTE | 2018-10-07 17:10 | EDPHY ---
H & P Time Seen by Provider: 10/07/18 16:36 HPI/ROS: CHIEF COMPLAINT: Unable to urinate HISTORY OF PRESENT ILLNESS: 78-year-old female who underwent a mitral valve clip procedure yesterday with discharge today presents reporting difficulty urinating. Patient does state that she had for catheter following her procedure for several hours. When it was removed, the patient has had small voids of urine since that time. She was discharged about 5 hr ago and presents this evening reporting ongoing sensation that she needs to urinate but inability to empty her bladder completely. She denies any fevers or chills. She has had no nausea or vomiting. No hematuria. REVIEW OF SYSTEMS: A comprehensive 10 system review of systems was reviewed and is otherwise negative aside from elements mentioned in the history of present illness and medical decision making. PAST MEDICAL HISTORY: Atrial fibrillation, mitral valve regurgitation, status post clip, left CVA. SOCIAL HISTORY: Here with her . VITAL SIGNS Reviewed by me. GENERAL: Well-developed, well-nourished, resting comfortably in no respiratory distress. HEENT: Atraumatic. Eyes: No icterus, no injection. Mouth: Slightly dry mucous membranes, moist mucous membranes. No erythema or lesions. Neck: supple with no adenopathy. LUNGS: Clear to auscultation bilaterally, no wheezes, rhonchi or rales. CARDIAC: Regular rate and rhythm, no rubs, murmurs or gallops. ABDOMEN: Soft, mild suprapubic tenderness, no nontender, nondistended, bowel sounds normal. BACK: No CVA tenderness. EXTREMITIES: No trauma. No edema. Range of motion is normal throughout. NEURO: Alert and oriented, grossly nonfocal. SKIN: Warm and dry, no rash. PSYCHIATRIC: Normal mentation, no agitation. Smoking Status: Never smoked Constitutional: Initial Vital Signs Temperature (C) 37.1 C 10/07/18 16:25 Heart Rate 98 10/07/18 16:25 Respiratory Rate 18 10/07/18 16:25 Blood Pressure 103/58 L 10/07/18 16:25 O2 Sat (%) 94 10/07/18 16:25 O2 Delivery Mode Room Air Allergies/Adverse Reactions: baclofen Allergy (Verified 10/07/18 16:30) very bad side effects Home Medications: Medication Instructions Recorded Levothyroxine [Synthroid 100 mcg 100 mcg PO DAILY@18 04/11/16 (*)] Vitamin K + Mk-7 90mcg 1 tab PO DAILY@1600 04/11/16 Warfarin Sodium [Coumadin 3MG (*)] 3 mg PO SUMOTUTHFR@16 04/11/16 Cholecalciferol Vit D3 [Vitamin D3 6,000 units PO DAILY 08/26/18 (*)] Furosemide [Lasix 40 MG (*)] 40 mg PO DAILY tab 08/30/18 Enoxaparin [Lovenox 60 MG (*)] 60 mg SQ Q12H 09/11/18 Metoprolol Succinate Xr [Toprol Xl 50 mg PO DAILY 09/11/18 50 mg (*)] Multivitamins W-Minerals [Thera M 1 each PO DAILY 09/11/18 Plus Tablet (*)] Warfarin Sodium [Coumadin 2MG (*)] 2 mg PO WESA@16 09/11/18 Acetaminophen [Tylenol 325mg (*)] 650 mg PO Q6HRS tab 10/07/18 Levothyroxine [Synthroid 100 mcg 100 mcg PO DAILY@18 tab 10/07/18 (*)] Phenazopyridine HCl [Pyridium] 200 mg PO TID #6 tab 10/07/18 Medical Decision Making ED Course/Re-evaluation: Bladder scan performed by nursing staff demonstrates 240 cc of urine. BUN and creatinine from earlier today are normal. Will not repeat. I discussed with the patient the importance of being well-hydrated, which she and her both admit has been an issue for her. She was given Pyridium to help with bladder spasm. She was instructed to return to the emergency department or seek care urgently if she had no urine output for the next 8-12 hours. She will follow up with primary care physician as needed. Differential Diagnosis: Differential diagnoses for the patient's symptom complex was considered including but not limited to urinary tract infection, urinary retention, post anesthetic affects, dehydration, bladder spasm. - Data Points Medications Given: Discontinued Medications Phenazopyridine HCl (Pyridium) 200 mg PO EDNOW ONE Stop: 10/07/18 17:09 Last Admin: 10/07/18 17:12 Dose: 200 mg Departure - Departure Disposition: Home, Routine, Self-Care Clinical Impression: Dehydration, Bladder spasm Condition: Good Instructions: Phenazopyridine (By mouth), Dehydration (ED) Additional Instructions: It is very important that you drink plenty of fluid. Your bladder scan demonstrates 200 cc of urine. You been given a prescription for Pyridium. This will make you urine look orange but may help with any bladder irritation. Please follow up with Dr. Parmar at within the next 1-2 days. Please return to the emergency department or seek care urgently if you are unable to urinate over the next 8-12 hours. Referrals: Denny Parmar MD [Primary Care Provider] - As per Instructions Prescriptions: Phenazopyridine HCl [Pyridium] 200 mg PO TID #6 tab
[2018-10-07] MEDS: PHENAZOPYRIDINE HCL 200 MG TAB PO ONE (17:12)
== END 2018-10-07 17:16 | disposition home or self-care (01) ==
PROC: 4A0D7LZ Measurement of Urinary Volume, Via Natural or Artificial Opening (ICD-10-PCS; principal; 2018-10-07)
DX: E86.0 Dehydration (principal); N32.89 Other specified disorders of bladder; Z98.890 Other specified postprocedural states